=== PATIENT | female | born 1945 | race Caucasian/White ===

== ENCOUNTER → 2016-10-26 | Outpatient (CLI) | payer OTHER ==
[~2016-10-26] MED LIST: CYAN1DRO INJ; FLUO40CA8 PO; ONDA8TAB62 SL; OXYC-57 PO; PRLSR20 PO
[2016-10-26 10:24] LABS: BASO % 0.5 %; BASO ABS # 0.04 K/uL (0-0.2); COMPLETE YES; EOS % 3.3 %; HEMATOCRIT 35.6 % (37-47); IG% 0.5 %; LYMPH % 14.3 %; LYMPH ABS # 1.15 K/uL (1.2-3.4); MEAN CELL VOLUME 88.3 fL (80-100); MEAN CORPUSCULAR HGB CONC 32.9 g/dl (32-36); MEAN PLATELET VOLUME 10.8 fL (7.4-10.4); MONO % 6.7 %; NEUT % 74.7 %; PLATELET COUNT 235 K/uL (130-400); RED BLOOD COUNT 4.03 M/uL (4.2-5.4); WHITE BLOOD COUNT 8.06 K/uL (4.8-10.8)
[2016-10-26 10:48] LABS: ALT/SGPT 25 U/L (12-78); AST/SGOT 15 U/L (15-37); BLOOD UREA NITROGEN 23 mg/dl (7-18); BUN/CREATININE RATIO 17.6 (10-20); CALCIUM 8.5 mg/dl (8.5-10.1); CARBON DIOXIDE 20 mmol/L (21-32); CHLORIDE 107 mmol/L (98-107); GLUCOSE 84 mg/dl (70-99); POTASSIUM 4.8 mmol/L (3.5-5.1); SODIUM 139 mmol/L (136-145)
[2016-10-26 11:14] LABS: ALB/GLOB RATIO 0.8 (0.9-2); ALKALINE PHOSPHATASE 100 U/L (45-117); CHOLESTEROL 191 mg/dl (0-200); CHOLESTEROL/HDL RATIO 2.7; HDL CHOLESTEROL 72 mg/dl; LDL CHOLESTEROL CALCULATED 77 mg/dl; TRIGLYCERIDES 211 mg/dl (0-150); VERY LOW DENSITY LIPOPROT CALC 42 mg/dl
== END | disposition home or self-care (01) ==
LOC: C.LABSPEC 14:16
PROVIDERS: ATTEND Internal Medicine Pulmonary Disease
DX: C54.3 Malignant neoplasm of fundus uteri (principal); E53.8 Deficiency of other specified B group vitamins; E03.9 Hypothyroidism, unspecified; D64.9 Anemia, unspecified; R73.9 Hyperglycemia, unspecified

== ENCOUNTER 2017-03-08 12:32 | Emergency (ER) | payer OTHER ==
[~2017-03-08] VITALS: Ht 162.6 cm; Wt 75.1 kg
[~2017-03-08 12:32] MED LIST changes: -OXYC-57 PO
[2017-03-08 12:42] VITALS: TEMP 36.7; Ht 162.6 cm; Wt 75.1 kg
--- NOTE | 2017-03-08 13:20 | EMERGENCY ROOM VISIT NOTE ---
History Report prepared by Grace: Estefany Medeiros Under the Supervision of: Dr. Nery Orta D.O. First contact with patient: 12:47 Chief Complaint: GI ASSESSMENT Stated Complaint: ILEOSTOMY SURG. STOMA PROLAPSED History of Present Illness The patient is a 72 year old female who presents to the Emergency Room for a GI assessment. The patient has a history of cancer and had an ileostomy placed in March 2016. Her stoma has prolapsed a few times in the past. She states that currently it has prolapsed every day for the past two weeks. She has been using sugar and cold compresses to try and alleviate her symptoms, and states that she is typically able to get it back in. Today it was worse. It has never prolapsed out this far before. She tried the sugar and cold compresses this morning, but they did not help. The patient reports some discomfort but denies any pain. Her bowel movements have been normal. She follows with Dr. Rubio at [facility], but she is currently on vacation. She called her PCP this morning and they called [place]. [place] recommended that the patient come to the ER for evaluation to determine if the patient needs to be sent to [place]. Source of History: patient Onset: 2 weeks ago Position: abdomen Symptom Intensity: minimal Quality: other (prolapse) Timing: worsening Associated Symptoms: No abdominal pain Review of Systems See HPI for pertinent positives & negatives. A total of 10 systems reviewed and were otherwise negative. Past Medical & Surgical Medical Problems: (1) Appendectomy (2) CHEMOTHERAPY FOLLOW-UP (3) Endometrial cancer (4) Endometrial carcinoma (5) Hysterectomy (6) INTEST ADHES W [id number] (7) MAL MARTHA RECTOSIGMOID JCT (8) MALIG MARTHA CORPUS UTERI (9) RADIATION GASTROENTERIT (10) Small bowel obstruction (11) Small bowel obstruction (12) Small bowel obstruction Surgical Problems: (1) H/O: hysterectomy Family History FHx: cancer Social History Smoking Status: Never Smoker Alcohol Use: none Drug Use: none Marital Status: Housing Status: lives with significant other Occupation Status: retired Current/Historical Medications Scheduled Fluoxetine (Prozac), 40 MG PO LATE AFTERNOON DAILY Scheduled PRN Omeprazole (Prilosec), 20 MG PO QAM PRN for Indigestion Ondansetron Odt (Zofran Odt), 8 MG SL Q6 PRN Allergies Coded Allergies: Diphenhydramine (Verified Adverse Reaction, Intermediate, SHAKEY, HYPER, ) Morphine (Verified Adverse Reaction, Mild, vomiting, 03/08/17) Lactose Intolerance (GI) (Unverified Adverse Reaction, Unknown, DIAHREA , 03/08/17) Physical Exam Vital Signs Date Time Temp Pulse Resp B/P (MAP) Pulse Ox O2 Delivery O2 Flow Rate FiO2 03/08/17 15:51 65 18 123/88 99 03/08/17 14:21 67 16 125/68 98 Room Air 03/08/17 12:42 36.7 103 18 98 Room Air Physical Exam GENERAL: alert, well appearing, well nourished, no distress, non-toxic EYE EXAM: normal conjunctiva, PERRL and EOM's grossly intact OROPHARYNX: no exudate, no erythema, lips, buccal mucosa, and tongue normal and mucous membranes are moist NECK: supple, no nuchal rigidity, no adenopathy, non-tender LUNGS: Clear to auscultation. Normal chest wall mechanics HEART: no murmurs, S1 normal and S2 normal ABDOMEN: There is a prolapsed segment of intestine at the ileostomy site. It is pink and moist, no bleeding from around the stoma. Stoma is well-healed. No evidence of surrounding cellulitis. Patient's abdomen is otherwise soft and nontender. BACK: Back is symmetrical on inspection and there is no deformity, no midline tenderness, no CVA tenderness. SKIN: no rashes and no bruising UPPER EXTREMITIES: upper extremities are grossly normal. LOWER EXTREMITIES: No pitting edema. NEURO EXAM: Normal sensorium, cranial nerves II-XII grossly intact, normal speech, no gross weakness of arms, no gross weakness of legs. Medical Decision & Procedures ED Course 1247: The patient was evaluated in room B4B. A complete history and physical exam was performed. 1321: At this time I spoke with Dr. Braun of colorectal specialty at [facility]. We discussed the patient's case. She recommended trying more sugar and having general surgery assess. As long as it is not ischemic and she is without vomiting or pain, she can be seen in the clinic tomorrow for follow- up. 1328: I updated the patient. She has a wet sterile dressing in place. She is still pain-free. The patient is comfortable with the plan. 1354: I obtained sugar from the cafeteria and applied it to the patient's abdomen. The patient is less prolapsed than she was during our first examination. 1457: I reassessed the patient and the prolapse has reduced. 1527: I spoke with Dr. Braun again at this time. She feels that the patient can be safely discharged and she should call the clinic tomorrow to schedule follow- up. 1532: I reassessed the patient at this time. She is feeling better and resting comfortably. I discussed the results and treatment plan with the patient. I answered all pertaining questions that she had. She expressed understanding and verbalized agreement. The patient will be discharged home. Medical Decision Medication Reconciliation: I attest that I have personally reviewed the patient' s current medication list. Blood pressure screening: Patient was found to have normal blood pressure on screening and does not require follow-up. Patient well-appearing here and a symptomatically other than prolapsed ileostomy segment. No evidence of ischemia or poor perfusion. No nausea vomiting, no other abdominal pain. The left segment able to be reduced with use of sugar. Discussed with patient's colorectal physician both before and after attempted reduction. Did not feel patient warranted more emergent surgical intervention or consultation here given successful reduction. Discussed with patient close follow-up with colorectal clinic at [place], symptoms to watch and return for, she verbalized understanding was agreeable with plan. Consults Time Called: 1315 Consulting Physician: Dr. Braun Returned Call: 1321 At this time I spoke with Dr. Braun of colorectal specialty at [facility]. We discussed the patient's case. She recommended trying more sugar and having general surgery assess. As long as it is not ischemic and she is without vomiting or pain, she can be seen in the clinic tomorrow for follow-up. Additional Consults: Time Called: 1522 Consulted Physician: Dr. Braun Returned Call: 1527 Additional Comments: I spoke with Dr. Braun again at this time. She feels that the patient can be safely discharged and she should call the clinic tomorrow to schedule follow-up. Impression Primary Impression: Prolapse of ileostomy Scribe Attestation The scribe's documentation has been prepared under my direction and personally reviewed by me in its entirety. I confirm that the note above accurately reflects all work, treatment, procedures, and medical decision making performed by me. Departure Information Dispostion Home / Self-Care Referrals Ray Wilson M.D. (PCP) Forms HOME CARE DOCUMENTATION FORM, IMPORTANT VISIT INFORMATION Patient Instructions My [facility] Additional Instructions Please call the colorectal clinic at [place] tomorrow to discuss with them how you're feeling and also arrange an appointment for close follow-up. Please rest today, sitting and/or laying down, and avoid any prolonged standing or walking, no strenuous activity or heavy lifting. Please continue all regular medications as prescribed. If you develop fevers, nausea or vomiting, abdominal pain, feel your ileostomy is not functioning properly, notice a change in the output, or you have any other new concerns, please return the emergency room immediately.
[2017-03-08 15:51] VITALS: BP 123/88; PULSE 65; O2SAT 99
[2017-04-26] MEDS ORDERED: OXYC-57 PO (09:03)
== END 2017-03-08 15:22 | disposition home or self-care (01) ==
LOC: C.EDB 12:34
DX: K94.19 Other complications of enterostomy (principal); Z85.89 Personal history of malignant neoplasm of other organs and systems; Z85.048 Personal history of other malignant neoplasm of rectum, rectosigmoid junction, and anus; Z80.9 Family history of malignant neoplasm, unspecified; Z79.899 Other long term (current) drug therapy

== ENCOUNTER 2017-03-14 12:35 | Emergency (ER) | payer OTHER ==
[~2017-03-14] VITALS: Ht 162.6 cm; Wt 75.2 kg
[~2017-03-14 12:35] MED LIST changes: -CYAN1DRO INJ
[2017-03-14 12:44] VITALS: TEMP 36.4; Ht 162.6 cm; Wt 75.2 kg
--- NOTE | 2017-03-14 14:30 | DIAGNOSTIC IMAGING REPORT ---
CHEST AND ABDOMEN 2 VIEWS HISTORY: poss obstruc, ileostomy. Generalized abdominal pain. COMPARISON: Chest and abdominal series 03/06/2016. FINDINGS: Mild, diffuse interstitial thickening. The heart is stable in size. Left subclavian Port-A-Cath terminates at the SVC. No pneumothorax. No pleural effusions. Right lower quadrant ostomy is again noted. Surgical clips and pelvic calcifications remain unchanged. Multiple distended loops of small bowel within the mid to upper abdomen with small fluid levels. These measure up to 5.7 cm in diameter. This has improved compared to the prior study. No pneumoperitoneum. No pneumatosis. IMPRESSION: Multiple distended loops of small bowel within the upper to mid abdomen with small fluid levels. This is consistent with a small bowel obstruction. However, this is improved compared to the prior studies. Electronically signed by: Pedro Rainey M.D. 03/14/2017 2:29 PM Dictated Date/Time: 03/14/2017 2:26 PM
--- NOTE | 2017-03-14 15:13 | EMERGENCY ROOM VISIT NOTE ---
History Report prepared by Grace: Ricky Todd Under the Supervision of: Dr. Glen Richardson M.D. First contact with patient: 12:51 Chief Complaint: ABDOMINAL PAIN Stated Complaint: STOMACH STICKING OUT,WONT GO IN,NAUSEA History of Present Illness The patient is a 72 year old female who presents to the Emergency Room with complaints of a worsening prolapsed ileostomy beginning a few weeks ago. The patient reports that her prolapse worsened a few hours ago. She states that she has been trying to reduce it on her own with sugar, but it has not been working well. The patient states that her ileostomy has been prolapsing off and on for the past few weeks. She reports that she typically uses sugar to reduce her prolapse, and it has been working. The patient notes that she was here on Wednesday for a prolapse of about 6 in. She states that sugar and cold compresses were used to reduce it, and it took hours. The patient reports that she was not nauseous on Wednesday, but today she is experiencing nausea, as well as blood in her ileostomy. She notes that she has an appointment with her surgeon in the next few weeks for a follow-up. The patient states that has a history of cancer , and the radiation has caused her problems. Source of History: patient Onset: few weeks ago Position: abdomen Quality: other (prolapsed ileostomy) Timing: worsening Associated Symptoms: + nausea Note: Associated symptoms: blood in her ileostomy Review of Systems See HPI for pertinent positives & negatives. A total of 10 systems reviewed and were otherwise negative. Past Medical & Surgical Medical Problems: (1) Appendectomy (2) CHEMOTHERAPY FOLLOW-UP (3) Endometrial cancer (4) Endometrial carcinoma (5) Hysterectomy (6) INTEST ADHES W [id number] (7) MAL MARTHA RECTOSIGMOID JCT (8) MALIG MARTHA CORPUS UTERI (9) RADIATION GASTROENTERIT (10) Small bowel obstruction (11) Small bowel obstruction (12) Small bowel obstruction Surgical Problems: (1) H/O: hysterectomy Family History FHx: cancer Social History Smoking Status: Never Smoker Alcohol Use: none Drug Use: none Marital Status: Housing Status: lives with significant other Occupation Status: retired Current/Historical Medications Scheduled Fluoxetine (Prozac), 40 MG PO LATE AFTERNOON DAILY Scheduled PRN Omeprazole (Prilosec), 20 MG PO QAM PRN for Indigestion Ondansetron Odt (Zofran Odt), 8 MG SL Q6 PRN Allergies Coded Allergies: Diphenhydramine (Verified Adverse Reaction, Intermediate, SHAKEY, HYPER, ) Morphine (Verified Adverse Reaction, Mild, vomiting, 03/14/17) Lactose Intolerance (GI) (Unverified Adverse Reaction, Unknown, DIAHREA , 03/14/17) Physical Exam Vital Signs Date Time Temp Pulse Resp B/P (MAP) Pulse Ox O2 Delivery O2 Flow Rate FiO2 03/14/17 15:26 69 18 141/77 98 03/14/17 15:16 72 18 141/77 98 Room Air 03/14/17 12:44 36.4 76 18 137/87 98 Room Air Physical Exam GENERAL: Patient is in no acute distress. HEENT: No acute trauma, normocephalic atraumatic, mucous membranes moist, no nasal congestion, no scleral icterus. NECK: No stridor, no adenopathy, no meningismus, trachea is midline. LUNGS: Clear to auscultation bilaterally, no wheeze, no rhonchi, breath sounds equal. HEART: Without murmurs gallops or rubs, regular rate and rhythm. ABDOMEN: Right sided ileostomy, which has herniated through the abdominal wall opening, no drainage, no skin cellulitis, no abdominal peritonitis, soft abdomen. EXTREMITIES: No cyanosis or edema, full range of motion of all the joints without pain or difficulty, no signs for acute trauma. NEUROLOGIC: Oriented x 3, no acute motor or sensory deficits, no focal weakness. SKIN: No rash, no jaundice, no diaphoresis. Medical Decision & Procedures ER Provider Diagnostic Interpretation: X-ray results as stated below per interpretation by me and the radiologist: CHEST AND ABDOMEN 2 VIEWS HISTORY: poss obstruc, ileostomy. Generalized abdominal pain. COMPARISON: Chest and abdominal series 03/06/2016. FINDINGS: Mild, diffuse interstitial thickening. The heart is stable in size. Left subclavian Port-A-Cath terminates at the SVC. No pneumothorax. No pleural effusions. Right lower quadrant ostomy is again noted. Surgical clips and pelvic calcifications remain unchanged. Multiple distended loops of small bowel within the mid to upper abdomen with small fluid levels. These measure up to 5.7 cm in diameter. This has improved compared to the prior study. No pneumoperitoneum. No pneumatosis. IMPRESSION: Multiple distended loops of small bowel within the upper to mid abdomen with small fluid levels. This is consistent with a small bowel obstruction. However, this is improved compared to the prior studies. Electronically signed by: Pedro Rainey M.D. 03/14/2017 2:29 PM Dictated Date/Time: 03/14/2017 2:26 PM Procedure Prolapse reduction: Using some persistent pressure and manipulation, the prolapse was reduced without complication or pain. The ileostomy immediately began draining stool. ED Course 1301: The patient was evaluated in room C04. A complete history and physical exam was performed. 1439: I reevaluated the patient, and she is doing well. Her ileostomy is draining well. I am going to discuss her case with her surgery group at [facility]. 1450: I discussed the patient's case with Dr. Harman, Surgery. The patient will be seen in the [place] clinic on Wednesday. 1500: Reevaluated the patient. Discussed results and discharge instructions: she verbalized understanding and agreement. The patient is ready for discharge. Medical Decision Differential diagnosis includes: bowel obstruction, hernia, prolapse, weakened abdominal musculature Medication Reconciliation: I attest that I have personally reviewed the patient' s current medication list. Blood pressure screening: Patient was found to have a slightly elevated blood pressure due to circumstances. I do not believe that the patient requires hypertension monitoring. The patient presents with a prolapse to her ileostomy, this has been an ongoing issue for her for several weeks. Today, she has been unable to reduce the ileostomy with sugar and presents here for help. The patient does have some nausea but her abdomen is soft. I was able to manually reduce the ileostomy without complication, she had no pain during the reduction. The patient's ileostomy began draining, she filled over a bag of stool. She feels markedly better, she is no longer nauseated. Films of the abdomen shows some air-fluid levels consistent with a possible obstruction but the films actually appear improved compared to previous films. I spoke with the surgical service at [facility]. The patient is being discharged with an outpatient follow-up in 2 days. The patient was encouraged to return for worsening symptoms, vomiting or pain. Consults Time Called: 1441 Consulting Physician: Dr. Harman, Surgery Returned Call: 1450 I discussed the patient's case with Dr. Harman, Surgery. The patient will be seen in the [place] clinic on Wednesday. Impression Primary Impression: Prolapse of ileostomy Scribe Attestation The scribe's documentation has been prepared under my direction and personally reviewed by me in its entirety. I confirm that the note above accurately reflects all work, treatment, procedures, and medical decision making performed by me. Departure Information Dispostion Home / Self-Care Referrals Heather Rubio M.D. (PCP) Forms HOME CARE DOCUMENTATION FORM, IMPORTANT VISIT INFORMATION Patient Instructions My [facility] Additional Instructions care as before you should call the [place] office to be seen this wednesday--I spoke with the detonator maker surgeon about this timing return for vomiting or pain or lack of ostomy drainage return for the inability to reduce the prolapse
[2017-03-14 15:26] VITALS: BP 141/77; PULSE 69; O2SAT 98
[2017-04-26] MEDS ORDERED: OXYC-57 PO (09:03)
== END 2017-03-14 15:26 | disposition home or self-care (01) ==
LOC: C.EDB 12:37 → C.EDC 15:26
DX: K94.13 Enterostomy malfunction (principal); Z85.01 Personal history of malignant neoplasm of esophagus; Z85.038 Personal history of other malignant neoplasm of large intestine; Z85.42 Personal history of malignant neoplasm of other parts of uterus; Z90.710 Acquired absence of both cervix and uterus; K56.60 Unspecified intestinal obstruction; Z92.3 Personal history of irradiation; Z92.21 Personal history of antineoplastic chemotherapy; Z98.890 Other specified postprocedural states; Z79.899 Other long term (current) drug therapy; Z88.5 Allergy status to narcotic agent; Z88.8 Allergy status to other drugs, medicaments and biological substances; Z91.011 Allergy to milk products; Z80.9 Family history of malignant neoplasm, unspecified

== ENCOUNTER 2017-03-31 13:16 | Emergency (ER) | payer OTHER ==
[~2017-03-31] VITALS: Ht 162.6 cm; Wt 77.5 kg
[2017-03-31 13:19] VITALS: TEMP 36.7; Ht 162.6 cm; Wt 77.5 kg
[2017-03-31] MEDS ORDERED: SODIUM CHLORIDE 0.9% 500ML 500 ML IV STA (13:48)
--- NOTE | 2017-03-31 13:48 | EMERGENCY ROOM VISIT NOTE ---
History Report prepared by Grace: Yoan Duncan Under the Supervision of: Dr. Eric Damon M.D. First contact with patient: 13:39 Chief Complaint: GI ASSESSMENT Stated Complaint: STOMA PROLAPSE History of Present Illness The patient is a 72 year old female who presents to the Emergency Room with complaints of a persistent prolapsed stoma that started around 0900 this morning. She has an ileostomy. The patient states that she was in here 2 or 3 weeks ago for the same problem. She says that she has not been able to settle it down this time either. The patient notes that the color of the discharge was pinkish-red but is now more reddish. She denies any pain currently. The patient adds that she is scheduled to see an anesthesiologist in [place] in 8 days, and she is scheduled to have surgery on April 19. Source of History: patient, family Onset: Around 0900 this morning Position: abdomen Quality: other (prolapsed stoma) Timing: other (persistent) Note: Associated symptoms: Color of discharge was pinkish-red but is now more red. Denies any current pain. Review of Systems See HPI for pertinent positives & negatives. A total of 10 systems reviewed and were otherwise negative. Past Medical & Surgical Medical Problems: (1) Appendectomy (2) CHEMOTHERAPY FOLLOW-UP (3) Endometrial cancer (4) Endometrial carcinoma (5) Hysterectomy (6) INTEST ADHES W [id number] (7) MAL MARTHA RECTOSIGMOID JCT (8) MALIG MARTHA CORPUS UTERI (9) RADIATION GASTROENTERIT (10) Small bowel obstruction (11) Small bowel obstruction (12) Small bowel obstruction Surgical Problems: (1) H/O: hysterectomy Family History FHx: cancer Social History Smoking Status: Never Smoker Alcohol Use: none Drug Use: none Marital Status: Housing Status: lives with significant other Occupation Status: retired Current/Historical Medications Scheduled Fluoxetine (Prozac), 40 MG PO LATE AFTERNOON DAILY Allergies Coded Allergies: Diphenhydramine (Verified Adverse Reaction, Intermediate, SHAKEY, HYPER, ) Morphine (Verified Adverse Reaction, Mild, vomiting, 03/14/17) Lactose Intolerance (GI) (Unverified Adverse Reaction, Unknown, DIAHREA , 03/14/17) Physical Exam Vital Signs Date Time Temp Pulse Resp B/P (MAP) Pulse Ox O2 Delivery O2 Flow Rate FiO2 03/31/17 16:13 70 18 138/81 97 03/31/17 14:59 70 16 147/84 03/31/17 13:19 36.7 82 20 146/81 96 Room Air Physical Exam GENERAL: Patient is a healthy-appearing well-nourished 72 year old female. HEAD: Normocephalic atraumatic EYES: Ocular movements intact pupils equal and react to light OROPHARYNX mucous membranes are moist no exudates present no erythema or edema present NECK: Supple no nuchal rigidity CHEST: Good equal expansion LUNGS: Clear and equal to auscultation CARDIAC: Normal S1 and S2 ABDOMEN: Ostomy that herniates out, is reducible, however re-herniates out after. BACK: No CVA tenderness EXTREMITIES: No pain upon palpation normal muscle strength in all groups no clubbing cyanosis or edema NEURO: Patient is following commands and answering questions appropriately. Alert and oriented x3 Cranial Nerves 2-12 grossly intact Medical Decision & Procedures Laboratory Results Labs reviewed by ED physician. ED Course 1341: Past medical records reviewed. The patient was evaluated in room A10. A complete history and physical examination was performed. 1348: Ordered NSS 500 ml @ 999 mls/hr IV. 1358: The patient's ostomy just reduced. 1444: I discussed the patient with Dr. Rubio - [facility] colon and rectal surgery - he wants the patient transferred down. 1446: I reevaluated the patient and she is resting. The patient verbally expressed understanding and agreement of the treatment plan. The patient will be transferred to . Medical Decision Differential diagnosis: Etiologies such as appendicitis, diverticulitis, PUD, biliary pathology, UTI, pancreatitis, obstruction, mesenteric ischemia, aortic pathology, infections, inflammatory bowel disease, renal colic, as well as others were entertained. Blood Pressure Screening: Patient was found to have an elevated blood pressure and was referred to their primary care doctor for recheck and further treatment Medication Reconciliation: I attest that I have personally reviewed the patient' s current medication list This is a 72-year-old female who presents emergency Department with a ostomy prolapse. This was reduced by me using sugar in the emergency department however the ostomy again herniated out. Because of this I did discuss the patient's case with her surgeon down in [place] who asked that the patient be transferred down. I did discuss my findings with the family who were in agreement with the treatment plan. I do feel that the patient can be safely discharged discharged via vehicle. Patient family were in agreement with the treatment plan. Consults Time Called: 1440 Consulting Physician: Dr. Ramiro Luque colon and rectal surgery Returned Call: 1440 I discussed the patient with Dr. Ramiro Luque colon and rectal surgery - he wants the patient transferred down. Impression Primary Impression: Complication of ostomy Scribe Attestation The scribe's documentation has been prepared under my direction and personally reviewed by me in its entirety. I confirm that the note above accurately reflects all work, treatment, procedures, and medical decision making performed by me. Departure Information Dispostion Transfer Acute Care Facility () Referrals Ray Wilson M.D. (PCP) Patient Instructions My [facility] Additional Instructions Go directly to [place]
[2017-03-31 16:13] VITALS: BP 138/81; PULSE 70; O2SAT 97
[2017-04-26] MEDS ORDERED: OXYC-57 PO (09:03)
== END 2017-03-31 16:14 | disposition short-term general hospital (02) ==
LOC: C.EDB 13:19 → C.EDA 16:14
DX: K94.19 Other complications of enterostomy (principal); Y83.3 Surgical operation with formation of external stoma as the cause of abnormal reaction of the patient, or of later complication, without mention of misadventure at the time of the procedure; Z85.42 Personal history of malignant neoplasm of other parts of uterus; Z85.048 Personal history of other malignant neoplasm of rectum, rectosigmoid junction, and anus; Z90.710 Acquired absence of both cervix and uterus; Z90.89 Acquired absence of other organs

== ENCOUNTER → 2017-04-26 | Day surgery (SDC) | payer OTHER ==
[~2017-04-26] VITALS: Ht 162.6 cm; Wt 75.0 kg
[~2017-04-26] MED LIST changes: +CEFAZOLIN 1000MG/55 ML D5W IV SCH; +FENTANYL CITRATE INJ 50 MCG/1 ML 2 ML VIAL IV ONE; +FENTANYL CITRATE INJ 50 MCG/1 ML 2 ML VIAL ONE; +LIDOCAINE HCL 1% 20 ML VIAL INJ ONE; +LIDOCAINE HCL 1% 20 ML VIAL ONE; +MIDAZOLAM HCL 1 MG/ML 2ML VIAL IV ONE; +MIDAZOLAM HCL 1 MG/ML 2ML VIAL ONE; -ONDA8TAB62 SL; +OXYC-57 PO; -PRLSR20 PO; +SODIUM CHLORIDE 0.9% 1000ML IV SCH
[2017-04-26 06:30] VITALS: BP 135/66; PULSE 79; TEMP 36.7; O2SAT 98; Ht 162.6 cm; Wt 75.0 kg
[2017-04-26 07:46] VITALS: BP 135/66; PULSE 79; TEMP 36.7; O2SAT 98
--- NOTE | 2017-04-26 07:55 | History and Physical ---
History & Physical Date Apr 26, 2017. Chief Complaint Post infusaport insertion 9 years ago History of Present Illness The patient is a 72 year old female who had an infusaport placed nine years ago for endometrial ca. She is not using it any longer. She is here for removal of the port. Vitals Vital Signs Past 12 Hours Date Time Temp Pulse Resp B/P (MAP) Pulse Ox O2 Delivery O2 Flow Rate FiO2 04/26/17 06:30 36.7 79 18 135/66 (89) 98 Room Air Allergies Coded Allergies: Diphenhydramine (Verified Adverse Reaction, Intermediate, SHAKEY, HYPER, ) Morphine (Verified Adverse Reaction, Mild, vomiting, 04/26/17) Lactose Intolerance (GI) (Unverified Adverse Reaction, Unknown, DIAHREA , 04/26/17) Home Medications Scheduled Fluoxetine (Prozac), 40 MG PO LATE AFTERNOON DAILY Problem List Medical Problems: (1) Appendectomy (2) CHEMOTHERAPY FOLLOW-UP (3) Endometrial cancer (4) Endometrial carcinoma (5) Hysterectomy (6) INTEST ADHES W [id number] (7) MAL MARTHA RECTOSIGMOID JCT (8) MALIG MARTHA CORPUS UTERI (9) RADIATION GASTROENTERIT (10) Small bowel obstruction (11) Small bowel obstruction (12) Small bowel obstruction Surgical Problems: (1) H/O: hysterectomy Surgical / Medical History Hx Cardiac Surgery: No Hx Abdominal Surgery: Yes (SUSAN/BSO 1993, TUBAL LIGATION) Hx Cancer Surgery: Yes (HYSTER) Hx Thoracic Surgery: No Hx Orthopedic: No Hx Urinary Tract Surgery: Yes (ileostomy) Past Medical/Surgical History: Gastrointestinal Disorder, Gynecological Problems Family History FHx: cancer Social History Smoking Status: Never Smoker Hx Tobacco Use In Past Year?: No Hx Alcohol Use - Type & Amnt: No Hx Substance Use -Type & Amnt: No Review of Systems Constitutional: No chills, No diaphoresis, No fever, No malaise, No weakness, No weight gain, No weight loss, No sweats, No fatigue, No problem reported Skin: No change in color, No change in hair/nails, No dryness, No lesions, No lumps, No rash, No abnormal mole, No problem reported Eyes: No discharge, No blurred vision, No double vision, No eye pain, No tearing, No itching, No photophobia, No redness, No visual changes, No dryness, No irritation, No problem reported ENMT: No dental pain, No loss of hearing, No epistaxis, No ear discharge, No ear pain, No gum swelling, No mouth pain, No mouth swelling, No nasal congestion , No nasal pain, No rhinorrhea, No stridor, No tinnitus, No sore throat, No throat swelling, No problem reported Respiratory: No cough, No cyanosis, No MANTILLA, No hemoptysis, No orthopnea, No PND , No short of breath, No sputum production, No stridor, No wheezing, No dyspnea , No problem reported Cardiovascular: No chest pain, No chest tightness, No chest pressure, No palpitations, No syncope, No diaphoresis, No edema, No intermittent claudication , No orthopnea, No cyanosis, No mumur, No lightheadedness, No paroxysmal nocturnal dyspnea, No problem reported Gastrointestinal: No abdominal pain, No constipation, No diarrhea, No nausea, No vomiting, No anorexia, No appetite changes, No belching, No flatulence, No food intolerance, No hematemesis, No hemorrhoids, No hematochezia, No stool changes, No heartburn, No indigestion, No dysphagia, No rectal bleeding, No problem reported Genitourinary - Female: No dysmenorrhea, No dysuria, No hematuria, No hesitancy , No menorrhagia, No metrorrhagia, No , No rash, No urinary frequency, No urinary incontinence, No urinary retention, No urinary urgency, No vulvadynia , No vaginal bleeding, No vaginal discharge, No vaginal itching, No breast problems, No problem reported Musculoskeletal: No back pain, No gout, No joint pain, No joint swelling, No muscle pain, No muscle stiffness, No muscle weakness, No neck pain, No problem reported Neurologic: No dizziness, No weakness, No headache, No lethargy, No numbness, No paresthesia, No pre-existing deficit, No seizures, No tics, No tingling, No tremors, No vertigo, No memory loss, No LOC, No problem reported Psychiatric: No anxiety, No alcohol abuse, No auditory hallucinations, No depression, No drug abuse, No homicidal ideation, No mood changes, No suicidal ideation, No visual hallucinations, No problem reported Physical Exam Constitutional: General Apperance: heathly-appearing, well-nourished, well-developed Level of Distress: NAD Ambulation: ambulating normally Psychiatric: Mental Status: active & alert, normal mood, normal affect Orientation: oriented except where noted, to time, to place, to person Memory: recent memory normal, remote memory normal Head: normocephalic Lungs: Auscultation: breath sounds normal Cardiovascular: Heart Auscultation: RRR Peripheral Pulses: Radial Pulse: normal on the left, normal on the right Femoral Pulse: normal on the left, normal on the right Abdomen: Inspection & Palpation: soft, pertinent finding (ileostomy present) Musculoskeletal: normal Extremities: Upper Right: no cyanosis, no edema, no varicosities, no palpable cord, no clubbing, no ulcers, no mottling Upper Left: no cyanosis, no edema, no varicosities, no palpable cord, no clubbing, no ulcers, no mottling Lower Right: no cyanosis, no edema, no varicosities, no palpable cord, no clubbing, no ulcers, no mottling Lower Left: no cyanosis, no edema, no varicosities, no palpable cord, no clubbing, no ulcers, no mottling Neurologic: Cranial Nerves: grossly intact Sensation: grossly intact Assessment and Plan Imp: Post infusaport Endometrial ca SBO recurrent Plan: Patient here for removal of her infusaport. I have discussed the risks options and benefits of the procedure with the patient. The patient understands the risks options and benefits and agrees to the procedure.
--- NOTE | 2017-04-26 08:04 | Procedure Note ---
Pre-Mod Sedation Assessment General Date of Moderate Sedation: Apr 26, 2017. Vital Signs: Vital Signs Past 12 Hours Date Time Temp Pulse Resp B/P (MAP) Pulse Ox O2 Delivery O2 Flow Rate FiO2 04/26/17 07:46 36.7 79 18 135/66 98 Room Air 04/26/17 06:30 36.7 79 18 135/66 (89) 98 Room Air Pre-Sedation Airway Assessment Oral Cavity: Capped Teeth Short Thick Neck: No Hx of Sleep Apnea: No Smoking Status: Never Smoker Mallampati Classification: Class I ASA Classification: Class II Notes The planned sedation has been discussed with the patient and consent obtained. I have identified the patient, determined the appropriateness of sedation and have assessed the patient immediately prior to the procedure. All medicine(s) and interventions are by my order.
--- NOTE | 2017-04-26 08:59 | Procedure Note ---
Post-Moderate Sedation Plan General Date of Moderate Sedation Apr 26, 2017. Vital Signs: Vital Signs Past 12 Hours Date Time Temp Pulse Resp B/P (MAP) Pulse Ox O2 Delivery O2 Flow Rate FiO2 04/26/17 08:55 16 119/69 100 Nasal Cannula 4 04/26/17 07:46 36.7 79 18 135/66 98 Room Air 04/26/17 06:30 36.7 79 18 135/66 (89) 98 Room Air Review - Discharge Plan Post Moderate Sedation Plan: On clinical assessment, the patient appears to have tolerated the conscious sedation without complications. Patient is recovering as anticipated. Patient will continue to be monitored by nursing and may be discharged when conscious sedation discharge criteria are met.
--- NOTE | 2017-04-26 09:00 | [facility] Post Operative Brief Note ---
Immediate Operative Summary Operative Date Apr 26, 2017. Pre-Operative Diagnosis post infusaport Post-Operative Diagnosis same Procedure(s) Performed Removal Of Aport, Moderate Concious Sedation [address] Anders Client Liaison Surgeon(s) none Estimated Blood Loss 5 ml Findings catheter and port removed Specimens A. explanted aport Anesthesia Local with conscious sedation Complication(s) None Disposition
[2017-04-26 09:05] VITALS: BP 117/68; PULSE 90; TEMP 36.5; O2SAT 99
--- NOTE | 2017-04-26 09:05 | Discharge Instructions ---
Discharge Instructions Date of Service Apr 26, 2017. Visit Reason for Visit: Endometrial Cancer Discharge Discharge Diagnosis / Problem: Removal of infusaport Discharge Goals Goal(s): Therapeutic intervention Activity Recommendations Activity Limitations: resume your previous activity Lifting Limitations: none Exercise/Sports Limitations: none May Resume Sexual Activity: when tolerated Shower/Bathe: tomorrow Driving or Machine Use: resume 1 day after discharge Anesthesia . Post Anesthesia Instructions: If you have had General Anesthesia or IV Sedation: * Do not drive today. * Resume driving when surgeon permits. * Do not make important decisions or sign legal documents today. * Call surgeon for: 1. Temperature elevations greater than 101 degrees F. 2. Uncontrollable pain. 3. Excessive bleeding. 4. Persistent nausea and vomiting. 5. Medication intolerance (nausea, vomiting or rash). * For nausea and vomiting use only clear liquids such as: tea, soda, bouillon until nausea subsides, then gradually increase diet as tolerated. * If you have any concerns or questions, call your surgeon's office. If physician is unavailable and it is an emergency, call 911 or go to the nearest emergency room. . Instructions / Follow-Up Instructions / Follow-Up Call [phone] to schedule a follow up appointment if one not already scheduled. ACTIVITY RECOMMENDATIONS: See Above SPECIAL CARE INSTRUCTIONS: Call your doctor if: * Temperature above 101 degrees * Pain not relieved by pain medicine ordered * There is increased drainage or redness from any incision * You have any unanswered questions or concerns. Diet Recommendations Recommended Home Diet: resume previous diet Procedures Procedures Performed: Removal Of Aport, Moderate Concious Sedation 0834 to 0854 Pending Studies Studies pending at discharge: no Medical Emergencies . Who to Call and When: Medical Emergencies: If at any time you feel your situation is an emergency, please call 911 immediately. . Non-Emergent Contact Non-Emergency issues call your: Surgeon . . "Provider Documentation" section prepared by Alfredo Anders. .
--- NOTE | 2017-04-26 09:34 | DIAGNOSTIC IMAGING REPORT ---
CHEST ONE VIEW PORTABLE CLINICAL HISTORY: removal of infusaport left subclavian vein COMPARISON STUDY: 03/14/2017 FINDINGS: The cardiac and mediastinal contours remain similar. There is no focal pulmonary consolidation. There is no failure. There are no pleural effusions. The left-sided A-Port catheter has been removed. No pneumothorax is visualized.[ IMPRESSION: No pneumothorax status post removal of the left subclavian A-Port catheter. Electronically signed by: Madan Balderrama M.D. 04/26/2017 9:32 AM Dictated Date/Time: 04/26/2017 9:32 AM
[2017-04-26 09:35] VITALS: BP 109/61; PULSE 77; O2SAT 99
[2017-04-26 10:06] VITALS: BP 111/57; PULSE 75; TEMP 36.4; O2SAT 98
--- NOTE | 2017-05-04 15:26 | DIAGNOSTIC IMAGING REPORT ---
DATE OF PROCEDURE: 04/26/2017 PREOPERATIVE DIAGNOSIS: Post [id number] insertion. POSTOPERATIVE DIAGNOSIS: Same. PROCEDURE: 1. Removal of left subclavian vein [id number]. 2. Moderate conscious sedation, 20 minutes. SURGEON: Dr. Anders. ANESTHETIC: Local with conscious sedation. PROCEDURE INDICATIONS: The patient is a 72-year-old female who has a port in for the last 9 years. It was used for treatment for endometrial cancer and recurrence. She no longer needs the port and was recommended for removal. She understood the risks, options and benefits, and agreed to go ahead with this procedure. The patient was taken to the operating room and placed in supine position. After the left-sided chest wall and neck were prepped and draped in a sterile manner, local anesthetic was administered. A transverse incision was made just above the port. Dissection was carried down through the subcutaneous tissue. The port was identified. It was freed up from the surrounding tissue along with its 5-Chinese sheath. Once it was freed up, the sheath was incised around the catheter. This was using sharp dissection. The catheter was then pulled out under slight constant traction. Once this was pulled out, the fibrin sheath was then tied with a Vicryl suture. Adequate hemostasis was noted at the wound. The wound was then closed in usual fashion using a running 3-0 Vicryl suture for the subcutaneous layer and a running 4-0 subcuticular Vicryl suture for the skin edges. Dermabond was used for dressing. The catheter in its entirety along with the port was removed. The patient left the angio suite in good condition and tolerated the procedure well.
== END | disposition home or self-care (01) ==
LOC: C.ACU 06:13
PROVIDERS: ATTEND Surgery Vascular Surgery
DX: Z85.42 Personal history of malignant neoplasm of other parts of uterus (principal); Z92.21 Personal history of antineoplastic chemotherapy; Z90.89 Acquired absence of other organs; Z90.710 Acquired absence of both cervix and uterus; Z85.41 Personal history of malignant neoplasm of cervix uteri; Z85.048 Personal history of other malignant neoplasm of rectum, rectosigmoid junction, and anus; Z92.3 Personal history of irradiation

== ENCOUNTER → 2017-05-28 | Outpatient (CLI) | payer OTHER ==
[~2017-05-28] MED LIST changes: -CEFAZOLIN 1000MG/55 ML D5W IV SCH; -FENTANYL CITRATE INJ 50 MCG/1 ML 2 ML VIAL IV ONE; -FENTANYL CITRATE INJ 50 MCG/1 ML 2 ML VIAL ONE; -LIDOCAINE HCL 1% 20 ML VIAL INJ ONE; -LIDOCAINE HCL 1% 20 ML VIAL ONE; -MIDAZOLAM HCL 1 MG/ML 2ML VIAL IV ONE; -MIDAZOLAM HCL 1 MG/ML 2ML VIAL ONE; -SODIUM CHLORIDE 0.9% 1000ML IV SCH
--- NOTE | 2017-05-28 16:48 | DIAGNOSTIC IMAGING REPORT ---
LUMBAR SPINE 5 VIEWS HISTORY: LEFT LOWER BACK PAIN COMPARISON: PET CT 02/22/2013. FINDINGS: There is no fracture. Bilateral L4 spondylolysis with associated grade II anterolisthesis measuring 1.3 cm. Moderate disc space narrowing at L4-L5. Severe disc space narrowing at L5-S1. Mild disc space narrowing at L1-L2, L2-L3, L3-L4. Moderate facet degenerative changes within the lower lumbar spine. Right lower quadrant ostomy site. 1.6 cm calcified structure within the right upper quadrant consistent with calcification adjacent to the liver capsule. Peritoneal calcifications within the deep pelvis. Gas-filled loop of bowel within the abdomen which has decreased in size. The sacrum is intact. IMPRESSION: 1. No fractures within the lumbar spine. 2. Grade II anterolisthesis of L4 on L5 due to the spondylolysis. This remains unchanged. 3. Multilevel degenerative disc disease most pronounced at the L4 and L5 levels. Electronically signed by: Pedro Rainey M.D. 05/28/2017 4:47 PM Dictated Date/Time: 05/28/2017 4:42 PM
== END | disposition home or self-care (01) ==
LOC: C.RAD1850 16:18
PROVIDERS: ATTEND Physician Assistant
DX: M54.5 Low back pain (principal)

== ENCOUNTER → 2017-06-14 | Outpatient (CLI) | payer OTHER ==
--- NOTE | 2017-06-14 13:09 | MAMMOGRAPHY REPORT ---
BILATERAL DIGITAL SCREENING MAMMOGRAM WITH CAD: 06/14/2017 CLINICAL HISTORY: Routine screening. Patient has no complaints. TECHNIQUE: Bilateral CC and MLO views were obtained. Current study was also evaluated with a Comput er Aided Detection (CAD) system. COMPARISON: Comparison is made to exams dated: 06/12/2016 mammogram, 06/10/2015 mammogram, 12/20/2014 m ammogram, 06/19/2014 ultrasound, 06/19/2014 mammogram, and 06/06/2014 mammogram - [facility]. BREAST COMPOSITION: There are scattered areas of fibroglandular density in both breasts. FINDINGS: There is mild vascular calcifications and scattered stable benign-appearing rounded puncta te microcalcifications in the breasts. There are stable asymmetries bilaterally. No new suspicious m ass, architectural distortion or cluster of microcalcifications is seen. IMPRESSION: ACR BI-RADS CATEGORY 2: BENIGN There is no mammographic evidence of malignancy. A 1 year screening mammogram is recommended. The pa tient will receive written notification of the results. Approximately 10% of breast cancers are not detected with mammography. A negative mammographic report should not delay biopsy if a clinically suggestive mass is present. Morelia Quintero M.D. ay/:06/14/2017 12:57:40 Personal Injury Litigation Paralegal: Dinora BURNS(Tom)(M), [facility] letter sent: Normal 1/2 BI-RADS Code: ACR BI-RADS Category 2: Benign
== END | disposition home or self-care (01) ==
LOC: C.MAMM 09:28
PROVIDERS: ATTEND Obstetrics & Gynecology Gynecologic Oncology
DX: Z12.31 Encounter for screening mammogram for malignant neoplasm of breast (principal)

== ENCOUNTER → 2017-09-15 | Outpatient (CLI) | payer OTHER ==
[2017-09-15 12:23] LABS: BLOOD UREA NITROGEN 19 mg/dl (7-18)
== END | disposition home or self-care (01) ==
LOC: C.LAB1850 10:49
PROVIDERS: ATTEND Psychiatry & Neurology Neurology
DX: Z00.00 Encounter for general adult medical examination without abnormal findings (principal)

== ENCOUNTER → 2017-09-23 | Outpatient (CLI) | payer OTHER ==
[~2017-09-23] MED LIST changes: +GADAVIST IV PRN
--- NOTE | 2017-09-23 10:01 | DIAGNOSTIC IMAGING REPORT ---
BRAIN COMBO CLINICAL HISTORY: I63.9 Stroke [id number] mental status change COMPARISON STUDY: No previous studies for comparison. TECHNIQUE: Utilizing a 1.5 Joycelyn magnet and dedicated coil, multiplanar, multiecho imaging of the brain was performed pre and postcontrast administration. IV administration of 8.0 mL of Gadavist contrast was uneventful. FINDINGS: Diffusion-weighted images are negative for an acute ischemic insult. The ventricular system is midline. Several foci of increased signal in the periventricular and deep white matter regions consistent with moderate chronic small vessel change of aging. Mild atrophy considered age appropriate. Ventricular system is midline. Sella and parasellar regions are unremarkable. No abnormal postcontrast enhancement. Small venous angioma of the left occipital lobe as well as left superior parietal region. These are of no clinical significance. IMPRESSION: Age-related change and mild atrophy. No acute process. No evidence for an acute ischemic insult. The above report was generated using voice recognition software. It may contain grammatical, syntax or spelling errors. Electronically signed by: Seamus Garcia M.D. 09/23/2017 10:00 AM Dictated Date/Time: 09/23/2017 9:56 AM
== END | disposition home or self-care (01) ==
LOC: C.MRI 08:28
PROVIDERS: ATTEND Psychiatry & Neurology Neurology
DX: I63.9 Cerebral infarction, unspecified (principal)

== ENCOUNTER 2023-04-01 13:46 | Observation (INO) ==
--- NOTE | 2023-04-01 14:37 | Emergency Department Note ---
Impression & Plan SOB (shortness of breath), Hypoxia, DRAKE (acute kidney injury), CKD (chronic kidney disease), Elevated troponin, Abnormal ECG ED Provider Note ED Provider Note NAME: IZABELA NICHOLS AGE:78 SEX: Female : 1945 ARRIVES VIA: Private vehicle INFORMANT: Patient, family ED PROVIDER(s): Nery Orta DO CHIEF COMPLAINT: Shortness of breath HPI: This is an 78-year-old female presents emergency department due to concern for shortness of breath. Family bedside states mood has been going on for about a week. She went to her PCPs office and an echo was ordered in conjunction with Dr. Gusman. They do not yet know the results of this. He states they also performed an EKG in the office which was reported to them was unremarkable. Due to the concern for worsening symptoms particularly with any exertion, she was referred here for additional evaluation. She denies any history of asthma or COPD. States she was never smoker. She denies any history of heart problems. PAST MEDICAL HISTORY:See Below PAST SURGICAL HISTORY:See Below FAMILY HISTORY:See Below SOCIAL HISTORY:See Below HOME MEDICATIONS:See Below ALLERGIES:See Below VITALS:See Below PHYSICAL EXAMINATION: GENERAL: alert, well appearing, well nourished, no distress, non-toxic EYE EXAM: normal conjunctiva, PERRL and EOM's grossly intact OROPHARYNX: no exudate, no erythema, lips, buccal mucosa, and tongue normal and mucous membranes are moist NECK: supple, no nuchal rigidity, no adenopathy, non-tender LUNGS: Clear to auscultation. Normal chest wall mechanics, no w/r/r HEART: no murmurs, S1 normal and S2 normal ABDOMEN: abdomen soft, non-tender, normo-active bowel sounds, no masses, no rebound or guarding. BACK: Back is symmetrical on inspection and there is no deformity, no midline tenderness, no CVA tenderness. SKIN: no rashes, petechiae, orbruising UPPER EXTREMITIES: upper extremities are grossly normal. FROM, nml pulses b/l. LOWER EXTREMITIES: No pitting edema. FROM, nml pulses b/l. NEURO EXAM: Confused to recent events and timing, cranial nerves II-XII grossly intact, normal speech, no facial droop,nogross weakness of arms, no gross weakness of legs. Gross sensation intact. No ataxia. Vital Signs: reviewed and remarkable Differential Diagnosis: ACS, CHF, PE, PNA, URI, COPD, pericardial effusion, medication adr, as well as others were considered MEDICAL DECISION MAKING: THis is an 78 yo female who was referred to the ER by her PCP due to concern for persistent SOB with exertion. No hx of CAD. OUtpatient provider had started her on lasix 20 mg without improvement. She had an echo on Wednesday, results of which were not yet known. Patient well appearing at rest without adventitious lung sounds, increased WOB, or overt hypoxia. VS stable and patient afebrile. Labs drawn and sent, IV established, EKG and CXR performed and interpreted at bedside, and patient placed on telemetry. Patient with CKD and worsening DRAKE noted today. Unclear if this is due to the recent addition of lasix. CXR didn't reveal acute etiology of symptoms and given hx she was sent for CT which showed chronic appearing changes despite their denial of underlying lung problems. I did discuss outpatient echo with cardiology who reviewed this as it hadn't yet been read. Nml EF noted. Patient had elevated troponin and abnormalities on EKG, however these were also seen on EKG from 03/22/2023. Unclear if troponin releated to EKG changes and recent symptoms of from CKD. Patient unable to have angio due to CKD so couldn't rule out PE, however no leg swelling or calf tenderness. Patient noted to have hypoxia and respiratory di stress with ambulatory trial. I discussed with them additional inpatient evaluation. Family was in agreement. CAse discussed with hospitalist. Consultation(s): 1640: Discussed with Dr. Talamantes, cardiology. He will try to look at the echo and read it. 1711: Discussed with Dr. Baez. ER Treatment Provided: See below 1702: During ambulatory trial with nursing staff patient's oxygen dropped to 87%, she became weak, tachypneic, and near syncopal. She was assisted back in bed and placed on oxygen via nasal cannula. now also states she was previously started on a diuretic after they saw Nikki Patel in the office last week. He states she is not taking this anymore. Diagnostics Interpreted By Me: -ECG: NSR at 80, left axis, nml intervals, ST depression in I, aVL, no ST elevation noted -Cardiac Monitoring: An order was placed for continuous cardiac monitoring. The monitor shows a rate of 88 with normal sinus rhythm. -Laboratory studies: As stated above and show below. -Imaging studies: X-ray Chest: A single view study of the chest was reviewed and was negative for cardiomegaly, focal infiltrate, effusion, pulmonary edema, or wide mediastinum. 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) Small bowel obstruction Surgical History H/O ileostomy History of appendectomy (10/20/12) Family History Father Pancreatic cancer Mother Pancreatic cancer Other Cancer Social History Smoking Status: Unknown if ever smoked Second Hand Exposure: No; Do You Dip or Chew Tobacco: No; Hx Alcohol Use: No Hx Substance Use: No Preferred Language: Angolan Communication Ability: Effective Tester Armature Or Fields Required: No Beliefs That Will Affect Care: None marital status: Current Living Situation: Spouse current occupational status: retired Other Information That Helps Us Care for You: No Feels Safe at Home: Yes Safety Concerns: Feels Safe At This Time Assistive Devices: Glasses Allergies Allergies Allergy/AdvReac Type Severity Reaction Status Date / Time diphenhydramine AdvReac Intermediate SHAKEY, Verified 04/01/23 17:43 HYPER morphine AdvReac Mild vomiting Verified 04/01/23 17:43 lactose AdvReac Unknown DIAHREA Verified 04/01/23 17:43 doxycycline AdvReac Nausea Verified 04/01/23 17:43 nirous oxide AdvReac will make Uncoded 04/01/23 17:44 blind Home Meds Home Medications Medication Instructions Recorded Confirmed fluoxetine 20 mg tablet 20 mg PO DAILY 04/18/19 04/01/23 vitamins A,C,[id number] 4,296 1 cap PO BID 09/12/22 07/06/23 mcg-226 mg-90 mg capsule (ICaps AREDS) fluoxetine 40 mg capsule 40 mg PO DAILY 10/23/22 04/01/23 Previous Rx's Medication Instructions Recorded buspirone 7.5 mg tablet 7.5 mg PO BID #180 tabs 04/17/19 mirtazapine 15 mg tablet 15 mg PO DAILY #90 tabs 04/17/19 cholecalciferol (vitamin D3) 25 25 mcg PO .COMPLEX #30 caps 09/23/21 mcg (1,000 unit) capsule calcitriol 0.5 mcg capsule 0.5 mcg PO .COMPLEX #36 caps 04/10/22 levothyroxine 50 mcg capsule 50 mcg PO DAILY #90 caps 04/14/22 donepezil 10 mg tablet 10 mg PO DAILY #90 tabs 10/19/22 memantine 28 mg capsule 28 mg PO DAILY #90 ea 12/07/22 sprinkle,extended release 24hr Results & Data (ED) Vital Signs Vital Signs - 24 hr 04/01/23 13:50 04/01/23 14:07 04/01/23 14:11 Temperature 36.6 C Temperature Source Oral Pulse Rate 87 Pulse Rate [Apical] 85 Pulse Rate [Exercises] Pulse Rate [Resting] Pulse Rate from SpO2 Sensor Pulse Rhythm [Apical] Regular Pulse Strength [Apical] Normal Respiratory Rate 14 24 Respiratory Rate [Exercises] Respiratory Rate [Resting] Respiratory Effort / Characteristics Respiratory Pattern Regular Blood Pressure 131/80 Blood Pressure [Right Arm] 121/72 Blood Pressure Mean 97 Blood Pressure Mean [Right Arm] 88 Blood Pressure Position [Right Arm] Sitting Pulse Oximetry 91 94 95 Pulse Oximetry [Exercises] Pulse Oximetry [Resting] Oxygen Delivery Method Nasal Cannula Room Air Room Air Oxygen Flow Rate Sepsis Recent Fever Within 48 Hours No Sepsis New/Unexplained Change in Mental Status No Sepsis Action Taken by Nursing No Action Required Oxygen Flow Rate - Titration Pulse Oximetry Post Tiitration 04/01/23 14:30 04/01/23 14:30 04/01/23 14:15 Temperature Temperature Source Pulse Rate 82 91 H Pulse Rate [Apical] Pulse Rate [Exercises] Pulse Rate [Resting] Pulse Rate from SpO2 Sensor Pulse Rhythm [Apical] Pulse Strength [Apical] Respiratory Rate 26 H Respiratory Rate [Exercises] Respiratory Rate [Resting] Respiratory Effort / Characteristics Respiratory Pattern Blood Pressure Blood Pressure [Right Arm] Blood Pressure Mean Blood Pressure Mean [Right Arm] Blood Pressure Position [Right Arm] Pulse Oximetry 95 95 Pulse Oximetry [Exercises] Pulse Oximetry [Resting] Oxygen Delivery Method Room Air Room Air Oxygen Flow Rate Sepsis Recent Fever Within 48 Hours Sepsis New/Unexplained Change in Mental Status Sepsis Action Taken by Nursing Oxygen Flow Rate - Titration Pulse Oximetry Post Tiitration 04/01/23 15:25 04/01/23 14:11 04/01/23 14:20 Temperature Temperature Source Pulse Rate 86 89 Pulse Rate [Apical] Pulse Rate [Exercises] Pulse Rate [Resting] Pulse Rate from SpO2 Sensor 64 Pulse Rhythm [Apical] Pulse Strength [Apical] Respiratory Rate 26 H 27 H Respiratory Rate [Exercises] Respiratory Rate [Resting] Respiratory Effort / Characteristics Respiratory Pattern Blood Pressure Blood Pressure [Right Arm] 119/67 Blood Pressure Mean Blood Pressure Mean [Right Arm] 84 Blood Pressure Position [Right Arm] Sitting Pulse Oximetry 95 Pulse Oximetry [Exercises] Pulse Oximetry [Resting] Oxygen Delivery Method Room Air Room Air Oxygen Flow Rate Sepsis Recent Fever Within 48 Hours Sepsis New/Unexplained Change in Mental Status Sepsis Action Taken by Nursing Oxygen Flow Rate - Titration Pulse Oximetry Post Tiitration 04/01/23 14:30 04/01/23 14:40 04/01/23 14:50 Temperature Temperature Source Pulse Rate 83 80 87 Pulse Rate [Apical] Pulse Rate [Exercises] Pulse Rate [Resting] Pulse Rate from SpO2 Sensor 84 80 85 Pulse Rhythm [Apical] Pulse Strength [Apical] Respiratory Rate 29 H 23 27 H Respiratory Rate [Exercises] Respiratory Rate [Resting] Respiratory Effort / Characteristics Respiratory Pattern Blood Pressure Blood Pressure [Right Arm] Blood Pressure Mean Blood Pressure Mean [Right Arm] Blood Pressure Position [Right Arm] Pulse Oximetry 94 95 94 Pulse Oximetry [Exercises] Pulse Oximetry [Resting] Oxygen Delivery Method Room Air Room Air Room Air Oxygen Flow Rate Sepsis Recent Fever Within 48 Hours Sepsis New/Unexplained Change in Mental Status Sepsis Action Taken by Nursing Oxygen Flow Rate - Titration Pulse Oximetry Post Tiitration 04/01/23 15:00 04/01/23 15:10 04/01/23 15:20 Temperature Temperature Source Pulse Rate 79 78 86 Pulse Rate [Apical] Pulse Rate [Exercises] Pulse Rate [Resting] Pulse Rate from SpO2 Sensor 80 80 83 Pulse Rhythm [Apical] Pulse Strength [Apical] Respiratory Rate 26 H 24 20 Respiratory Rate [Exercises] Respiratory Rate [Resting] Respiratory Effort / Characteristics Respiratory Pattern Blood Pressure Blood Pressure [Right Arm] Blood Pressure Mean Blood Pressure Mean [Right Arm] Blood Pressure Position [Right Arm] Pulse Oximetry 95 96 95 Pulse Oximetry [Exercises] Pulse Oximetry [Resting] Oxygen Delivery Method Room Air Room Air Room Air Oxygen Flow Rate Sepsis Recent Fever Within 48 Hours Sepsis New/Unexplained Change in Mental Status Sepsis Action Taken by Nursing Oxygen Flow Rate - Titration Pulse Oximetry Post Tiitration 04/01/23 17:03 04/01/23 17:08 04/01/23 17:13 Temperature Temperature Source Pulse Rate Pulse Rate [Apical] 85 Pulse Rate [Exercises] 117 H Pulse Rate [Resting] 76 Pulse Rate from SpO2 Sensor Pulse Rhythm [Apical] Pulse Strength [Apical] Respiratory Rate 22 Respiratory Rate [Exercises] 28 H Respiratory Rate [Resting] 20 Respiratory Effort / Characteristics Spontaneous Respiratory Pattern Regular Blood Pressure Blood Pressure [Right Arm] 124/77 Blood Pressure Mean Blood Pressure Mean [Right Arm] 92 Blood Pressure Position [Right Arm] Sitting Pulse Oximetry 99 89 L Pulse Oximetry [Exercises] 87 L Pulse Oximetry [Resting] 97 Oxygen Delivery Method Room Air Nasal Cannula Room Air Oxygen Flow Rate 3 Sepsis Recent Fever Within 48 Hours Sepsis New/Unexplained Change in Mental Status Sepsis Action Taken by Nursing Oxygen Flow Rate - Titration 3 Pulse Oximetry Post Tiitration 99 04/01/23 15:25 04/01/23 15:25 04/01/23 15:30 Temperature Temperature Source Pulse Rate 75 Pulse Rate [Apical] Pulse Rate [Exercises] Pulse Rate [Resting] Pulse Rate from SpO2 Sensor 75 Pulse Rhythm [Apical] Pulse Strength [Apical] Respiratory Rate 24 Respiratory Rate [Exercises] Respiratory Rate [Resting] Respiratory Effort / Characteristics Respiratory Pattern Blood Pressure 119/67 121/80 Blood Pressure [Right Arm] Blood Pressure Mean 84 93 Blood Pressure Mean [Right Arm] Blood Pressure Position [Right Arm] Pulse Oximetry 96 Pulse Oximetry [Exercises] Pulse Oximetry [Resting] Oxygen Delivery Method Oxygen Flow Rate Sepsis Recent Fever Within 48 Hours Sepsis New/Unexplained Change in Mental Status Sepsis Action Taken by Nursing Oxygen Flow Rate - Titration Pulse Oximetry Post Tiitration 04/01/23 15:30 04/01/23 15:40 04/01/23 15:51 Temperature Temperature Source Pulse Rate 79 79 82 Pulse Rate [Apical] Pulse Rate [Exercises] Pulse Rate [Resting] Pulse Rate from SpO2 Sensor 79 80 82 Pulse Rhythm [Apical] Pulse Strength [Apical] Respiratory Rate 22 17 28 H Respiratory Rate [Exercises] Respiratory Rate [Resting] Respiratory Effort / Characteristics Respiratory Pattern Blood Pressure Blood Pressure [Right Arm] Blood Pressure Mean Blood Pressure Mean [Right Arm] Blood Pressure Position [Right Arm] Pulse Oximetry 96 95 94 Pulse Oximetry [Exercises] Pulse Oximetry [Resting] Oxygen Delivery Method Oxygen Flow Rate Sepsis Recent Fever Within 48 Hours Sepsis New/Unexplained Change in Mental Status Sepsis Action Taken by Nursing Oxygen Flow Rate - Titration Pulse Oximetry Post Tiitration 04/01/23 16:00 04/01/23 16:10 04/01/23 16:20 Temperature Temperature Source Pulse Rate 73 81 75 Pulse Rate [Apical] Pulse Rate [Exercises] Pulse Rate [Resting] Pulse Rate from SpO2 Sensor 74 71 74 Pulse Rhythm [Apical] Pulse Strength [Apical] Respiratory Rate 25 H 22 23 Respiratory Rate [Exercises] Respiratory Rate [Resting] Respiratory Effort / Characteristics Respiratory Pattern Blood Pressure Blood Pressure [Right Arm] Blood Pressure Mean Blood Pressure Mean [Right Arm] Blood Pressure Position [Right Arm] Pulse Oximetry 96 97 97 Pulse Oximetry [Exercises] Pulse Oximetry [Resting] Oxygen Delivery Method Oxygen Flow Rate Sepsis Recent Fever Within 48 Hours Sepsis New/Unexplained Change in Mental Status Sepsis Action Taken by Nursing Oxygen Flow Rate - Titration Pulse Oximetry Post Tiitration 04/01/23 16:30 04/01/23 16:40 04/01/23 16:50 Temperature Temperature Source Pulse Rate 77 75 75 Pulse Rate [Apical] Pulse Rate [Exercises] Pulse Rate [Resting] Pulse Rate from SpO2 Sensor 77 76 76 Pulse Rhythm [Apical] Pulse Strength [Apical] Respiratory Rate 23 21 24 Respiratory Rate [Exercises] Respiratory Rate [Resting] Respiratory Effort / Characteristics Respiratory Pattern Blood Pressure Blood Pressure [Right Arm] Blood Pressure Mean Blood Pressure Mean [Right Arm] Blood Pressure Position [Right Arm] Pulse Oximetry 96 98 97 Pulse Oximetry [Exercises] Pulse Oximetry [Resting] Oxygen Delivery Method Oxygen Flow Rate Sepsis Recent Fever Within 48 Hours Sepsis New/Unexplained Change in Mental Status Sepsis Action Taken by Nursing Oxygen Flow Rate - Titration Pulse Oximetry Post Tiitration 04/01/23 17:00 04/01/23 17:10 04/01/23 17:11 Temperature Temperature Source Pulse Rate Pulse Rate [Apical] Pulse Rate [Exercises] Pulse Rate [Resting] Pulse Rate from SpO2 Sensor 88 81 82 Pulse Rhythm [Apical] Pulse Strength [Apical] Respiratory Rate Respiratory Rate [Exercises] Respiratory Rate [Resting] Respiratory Effort / Characteristics Respiratory Pattern Blood Pressure Blood Pressure [Right Arm] Blood Pressure Mean Blood Pressure Mean [Right Arm] Blood Pressure Position [Right Arm] Pulse Oximetry 91 99 100 Pulse Oximetry [Exercises] Pulse Oximetry [Resting] Oxygen Delivery Method Oxygen Flow Rate Sepsis Recent Fever Within 48 Hours Sepsis New/Unexplained Change in Mental Status Sepsis Action Taken by Nursing Oxygen Flow Rate - Titration Pulse Oximetry Post Tiitration 04/01/23 17:11 04/01/23 17:20 04/01/23 17:30 Temperature Temperature Source Pulse Rate Pulse Rate [Apical] Pulse Rate [Exercises] Pulse Rate [Resting] Pulse Rate from SpO2 Sensor 68 Pulse Rhythm [Apical] Pulse Strength [Apical] Respiratory Rate Respiratory Rate [Exercises] Respiratory Rate [Resting] Respiratory Effort / Characteristics Respiratory Pattern Blood Pressure 124/77 142/89 H Blood Pressure [Right Arm] Blood Pressure Mean 92 106 Blood Pressure Mean [Right Arm] Blood Pressure Position [Right Arm] Pulse Oximetry 99 Pulse Oximetry [Exercises] Pulse Oximetry [Resting] Oxygen Delivery Method Oxygen Flow Rate 3 Sepsis Recent Fever Within 48 Hours Sepsis New/Unexplained Change in Mental Status Sepsis Action Taken by Nursing Oxygen Flow Rate - Titration Pulse Oximetry Post Tiitration 04/01/23 17:30 04/01/23 17:40 04/01/23 17:50 Temperature Temperature Source Pulse Rate Pulse Rate [Apical] Pulse Rate [Exercises] Pulse Rate [Resting] Pulse Rate from SpO2 Sensor 74 76 80 Pulse Rhythm [Apical] Pulse Strength [Apical] Respiratory Rate Respiratory Rate [Exercises] Respiratory Rate [Resting] Respiratory Effort / Characteristics Respiratory Pattern Blood Pressure Blood Pressure [Right Arm] Blood Pressure Mean Blood Pressure Mean [Right Arm] Blood Pressure Position [Right Arm] Pulse Oximetry 100 100 99 Pulse Oximetry [Exercises] Pulse Oximetry [Resting] Oxygen Delivery Method Oxygen Flow Rate 3 3 3 Sepsis Recent Fever Within 48 Hours Sepsis New/Unexplained Change in Mental Status Sepsis Action Taken by Nursing Oxygen Flow Rate - Titration Pulse Oximetry Post Tiitration 04/01/23 18:00 04/01/23 18:30 04/01/23 18:40 Temperature Temperature Source Pulse Rate Pulse Rate [Apical] Pulse Rate [Exercises] Pulse Rate [Resting] Pulse Rate from SpO2 Sensor 81 79 Pulse Rhythm [Apical] Pulse Strength [Apical] Respiratory Rate Respiratory Rate [Exercises] Respiratory Rate [Resting] Respiratory Effort / Characteristics Respiratory Pattern Blood Pressure 109/79 133/83 133/83 Blood Pressure [Right Arm] Blood Pressure Mean 89 99 99 Blood Pressure Mean [Right Arm] Blood Pressure Position [Right Arm] Pulse Oximetry 100 100 Pulse Oximetry [Exercises] Pulse Oximetry [Resting] Oxygen Delivery Method Nasal Cannula Nasal Cannula Oxygen Flow Rate 3 3 Sepsis Recent Fever Within 48 Hours Sepsis New/Unexplained Change in Mental Status Sepsis Action Taken by Nursing Oxygen Flow Rate - Titration Pulse Oximetry Post Tiitration Laboratory Data 04/01/23 14:33 04/01/23 14:33 Lab Results 04/01/23 04/01/23 04/01/23 Range/Units 14:33 14:33 14:33 WBC 15.58 H (4.8-10.8) K/ul RBC 4.72 (4.20-5.40) M/uL Hgb 14.2 (12.0-16.0) g/dl Hct 40.7 (37.0-47.0) % MCV 86.2 (80.0-100.0) fL MCH 30.1 (25.0-34.0) pg MCHC 34.9 (32.0-36.0) g/dL RDW Std Deviation 41.6 (36.4-46.3) fL RDW Coeff of Silvino 13.3 (11.5-14.5) % Plt Count 280 (130-400) K/uL MPV 11.9 (9.4-12.4) fL Immature Gran % (Auto) 1.3 % Neut % (Auto) 86.2 % Lymph % (Auto) 4.8 % [place] % (Auto) 7.1 % Eos % (Auto) 0.3 % Baso % (Auto) 0.3 % Neut # (Auto) 13.44 H (1.40-6.50) K/uL Lymph # (Auto) 0.75 L (1.2-3.4) K/uL [place] # (Auto) 1.11 H (0.11-0.59) K/uL Eos # (Auto) 0.04 (0-0.50) K/uL Baso # (Auto) 0.04 (0-0.2) K/uL Immature Gran # (Auto) 0.20 (0.01-0.20) K/uL PT 11.4 (9.0-12.0) Seconds INR 1.0 (0.9-1.1) APTT 24.9 (21.0-31.0) Seconds PTT Ratio 0.9 Sodium 127 L (136-145) mmol/L Potassium 3.5 (3.5-5.1) mmol/L Chloride 95 L (98-107) mmol/L Carbon Dioxide 19 L (21-32) mmol/L Anion Gap 13 H (3-11) BUN 72 H (6-23) mg/dl Creatinine 3.51 H (0.6-1.2) mg/dl Est Cr Clr Drug Dosing Not Reportable Est GFR ( Amer) 13.5 ml/min Est GFR (Non-Af Amer) 11.7 ml/min BUN/Creatinine Ratio 20.5 H (10-20) Glucose 130 H (70-99(Fasting)) mg/dl POC Glucose (70-99) mg/dl Calcium 9.3 (8.6-10.3) mg/dl Total Bilirubin 0.7 (0.2-1.0) mg/dl AST 43 H (13-39) U/L ALT 68 H (7-52) U/L Alkaline Phosphatase 119 H (34-104) U/L Troponin I High Sens 38.1 H (0-14) pg/ml Total Protein 8.4 H (6.0-8.3) gm/dl Albumin 3.8 (3.4-5.0) gm/dl Globulin 4.6 H (2.5-4.0) gm/dl Albumin/Globulin Ratio 0.8 L (0.9-2) Adenovirus (PCR) (NotDetected) B. pertussis DNA (PCR) (NotDetected) B.parapertussis DNA PCR (NotDetected) C. pneumoniae DNA (PCR) (NotDetected) Coronavirus OC43 (PCR) (NotDetected) Coronavirus HKU1 (PCR) (NotDetected) Coronavirus 229E (PCR) (NotDetected) SARS-CoV-2 (PCR) (NotDetected) Coronavirus NL63 (PCR) (NotDetected) Human Metapneumovir PCR (NotDetected) Influenza Type A (PCR) (NotDetected) Influenza Type B (PCR) (NotDetected) M. pneumoniae (PCR) (NotDetected) Parainfluenza 1 (PCR) (NotDetected) Parainfluenza 2 (PCR) (NotDetected) Parainfluenza 3 (PCR) (NotDetected) Parainfluenza 4 (PCR) (NotDetected) RSV (PCR) (NotDetected) Entero/Rhino (PCR) (NotDetected) 04/01/23 04/01/23 Range/Units 14:33 17:20 WBC (4.8-10.8) K/ul RBC (4.20-5.40) M/uL Hgb (12.0-16.0) g/dl Hct (37.0-47.0) % MCV (80.0-100.0) fL MCH (25.0-34.0) pg MCHC (32.0-36.0) g/dL RDW Std Deviation (36.4-46.3) fL RDW Coeff of Silvino (11.5-14.5) % Plt Count (130-400) K/uL MPV (9.4-12.4) fL Immature Gran % (Auto) % Neut % (Auto) % Lymph % (Auto) % [place] % (Auto) % Eos % (Auto) % Baso % (Auto) % Neut # (Auto) (1.40-6.50) K/uL Lymph # (Auto) (1.2-3.4) K/uL [place] # (Auto) (0.11-0.59) K/uL Eos # (Auto) (0-0.50) K/uL Baso # (Auto) (0-0.2) K/uL Immature Gran # (Auto) (0.01-0.20) K/uL PT (9.0-12.0) Seconds INR (0.9-1.1) APTT (21.0-31.0) Seconds PTT Ratio Sodium (136-145) mmol/L Potassium (3.5-5.1) mmol/L Chloride (98-107) mmol/L Carbon Dioxide (21-32) mmol/L Anion Gap (3-11) BUN (6-23) mg/dl Creatinine (0.6-1.2) mg/dl Est Cr Clr Drug Dosing Est GFR ( Amer) ml/min Est GFR (Non-Af Amer) ml/min BUN/Creatinine Ratio (10-20) Glucose (70-99(Fasting)) mg/dl POC Glucose 112 H (70-99) mg/dl Calcium (8.6-10.3) mg/dl Total Bilirubin (0.2-1.0) mg/dl AST (13-39) U/L ALT (7-52) U/L Alkaline Phosphatase (34-104) U/L Troponin I High Sens (0-14) pg/ml Total Protein (6.0-8.3) gm/dl Albumin (3.4-5.0) gm/dl Globulin (2.5-4.0) gm/dl Albumin/Globulin Ratio (0.9-2) Adenovirus (PCR) Not Detected (NotDetected) B. pertussis DNA (PCR) Not Detected (NotDetected) B.parapertussis DNA PCR Not Detected (NotDetected) C. pneumoniae DNA (PCR) Not Detected (NotDetected) Coronavirus OC43 (PCR) Not Detected (NotDetected) Coronavirus HKU1 (PCR) Not Detected (NotDetected) Coronavirus 229E (PCR) Not Detected (NotDetected) SARS-CoV-2 (PCR) Not Detected (NotDetected) Coronavirus NL63 (PCR) Not Detected (NotDetected) Human Metapneumovir PCR Not Detected (NotDetected) Influenza Type A (PCR) Not Detected (NotDetected) Influenza Type B (PCR) Not Detected (NotDetected) M. pneumoniae (PCR) Not Detected (NotDetected) Parainfluenza 1 (PCR) Not Detected (NotDetected) Parainfluenza 2 (PCR) Not Detected (NotDetected) Parainfluenza 3 (PCR) Not Detected (NotDetected) Parainfluenza 4 (PCR) Not Detected (NotDetected) RSV (PCR) Not Detected (NotDetected) Entero/Rhino (PCR) Not Detected (NotDetected) Imaging Data Radiologist's Impression: Chest X-Ray 04/01/23 13:55 SINGLE VIEW CHEST CLINICAL HISTORY: Atypical chest pain. FINDINGS: An AP, portable, upright chest radiograph is compared to study dated 03/22/2023 and correlated with chest CT dated 04/21/2015. The heart is mildly enlarged noting atherosclerotic calcification of the thoracic aorta. The pulmon jossue vasculature is nondistended congested. Findings of chronic interstitial lung disease are similar to previous. Scarring/atelectasis is noted at the lung bases. No superimposed airspace consolidation or large pleural effusion is identified. No pneumothorax is seen. The skeletal structures are osteopenic. The bony thorax is grossly intact. IMPRESSION: Chronic parenchymal changes as above with no acute cardiopulmonary abnormality identified. ACT 112: Negative or not required by law. Electronically signed by: Glen Ortiz M.D. 04/01/2023 3:[address] 04/01/23 15:19 CT SCAN OF THE CHEST WITHOUT IV CONTRAST CLINICAL HISTORY: Dyspnea COMPARISON STUDY: Chest x-ray dated 04/01/2023. Chest CT dated 04/21/2015. TECHNIQUE: CT scan of the thorax was performed from the thoracic inlet to the upper abdomen. Images are reviewed in the axial, sagittal, and coronal planes. IV contrast was not administered for this examination as per the referring clinician. A dose lowering technique was utilized adhering to the principles of ALARA. CT DOSE: 627.96 mGy.cm FINDINGS: Thyroid: Atrophic. Thoracic aorta: There is moderate atherosclerotic calcification of the thoracic aorta, which is normal in caliber and demonstrates standard 3-vessel arch anatomy. Heart: The heart is mildly enlarged and without pericardial effusion. The coronary arteries are densely calcified. The main pulmonary arteries are dilated suggesting pulmonary artery hypertension. Lungs and pleural spaces: Findings of chronic interstitial lung disease are again seen throughout both lungs. This has progressed as compared to 04/21/2015 examination, with diffuse subpleural reticulation and subpleural ground glass opacities. There are numerous foci of parenchymal scarring and architectural distortion. Traction bronchiectasis is seen bilaterally. No honeycombing is identified. There is no superimposed airspace consolidation or pleural effusion. There are scattered calcified granulomas. The trachea and central airways are patent. Mediastinum: There is no mediastinal lymphadenopathy. Dayna: Not well assessed without IV contrast. Axillae: There is no axillary lymphadenopathy. Upper abdomen: The gallbladder is distended but otherwise normal as imaged. Calcifications posterior to the right lobe of the liver are similar to the 2015 examination. Diverticula are noted in the partially imaged left colon. Skeletal structures: The skeletal structures are osteopenic. Degenerative change in hyperkyphosis is noted in the thoracic spine. There is a mild chronic superior endplate compression deformity of T4. Arthritic change is noted in the shoulders. No lytic or blastic bony lesions are seen. IMPRESSION: 1. Findings of chronic interstitial/fibrotic lung disease as above. This has progressed from the 2015 examination. Nonemergent follow-up with pulmonology is recommended. 2. No superimposed airspace consolidation or pleural effusion is identified. 3. Mild cardiomegaly. 4. Additional findings as above. ACT 112: Negative or not required by law. Electronically signed by: Glen Ortiz M.D. 04/01/2023 4:04 PM Discharge Plan Visit Data Chief Complaint: Shortness of Breath/Dyspnea Stated Complaint: SOB, WEAKNESS ED Provider: Nery Orta Discharge Problem: SOB (shortness of breath), Hypoxia, DRAKE (acute kidney injury), CKD (chronic kidney disease), Elevated troponin, Abnormal ECG Patient Disposition: Admitted As Inpatient Discharge Instructions Interventions: ED Discharge Assessment Last Done: 04/01/23 20:19
[2023-04-01 14:58] LABS: Basophils # (auto) 0.04 K/uL (0-0.2); Basophils % (auto) 0.3 %; Eosinophils # (auto) 0.04 K/uL (0-0.50); Eosinophils % (auto) 0.3 %; Hematocrit (blood only) 40.7 % (37.0-47.0); Hemoglobin 14.2 g/dl (12.0-16.0); Immature Granulocytes % (auto) 1.3 %; Lymphocytes # (auto) 0.75 K/uL (1.2-3.4); Lymphocytes % (auto) 4.8 %; Mean Corpuscular Hemoglobin 30.1 pg (25.0-34.0); Mean Corpuscular Hgb Conc 34.9 g/dL (32.0-36.0); Mean Corpuscular Volume 86.2 fL (80.0-100.0); Mean Platelet Volume 11.9 fL (9.4-12.4); Monocytes # (auto) 1.11 K/uL (0.11-0.59); Monocytes % (auto) 7.1 %; Neutrophils # (auto) 13.44 K/uL (1.40-6.50); Neutrophils % (auto) 86.2 %; Platelet Count 280 K/uL (130-400); RDW Coefficient of Variation 13.3 % (11.5-14.5); RDW Standard Deviation 41.6 fL (36.4-46.3); Red Blood Count 4.72 M/uL (4.20-5.40); White Blood Count 15.58 K/ul (4.8-10.8)
--- NOTE | 2023-04-01 15:06 | XRay Report ---
SINGLE VIEW CHEST CLINICAL HISTORY: Atypical chest pain. FINDINGS: An AP, portable, upright chest radiograph is compared to study dated 03/22/2023 and correlat ed with chest CT dated 04/21/2015. The heart is mildly enlarged noting atherosclerotic calcification o f the thoracic aorta. The pulmonary vasculature is nondistended congested. Findings of chronic inters titial lung disease are similar to previous. Scarring/atelectasis is noted at the lung bases. No supe rimposed airspace consolidation or large pleural effusion is identified. No pneumothorax is seen. The skeletal structures are osteopenic. The bony thorax is grossly intact. IMPRESSION: Chronic parenchymal changes as above with no acute cardiopulmonary abnormality identified . ACT 112: Negative or not required by law. Electronically signed by: Glen Ortiz M.D. 04/01/2023 3:04 PM
[2023-04-01 15:12] LABS: Alanine Aminotransferase 68 U/L (7-52); Albumin Globulin Ratio 0.8 (0.9-2); Albumin Level 3.8 gm/dl (3.4-5.0); Alkaline Phosphatase 119 U/L (34-104); Anion Gap 13 (3-11); Aspartate Aminotransferase 43 U/L (13-39); BUN Creatinine Ratio 20.5 (10-20); Bilirubin,Total 0.7 mg/dl (0.2-1.0); Blood Urea Nitrogen 72 mg/dl (6-23); Calcium 9.3 mg/dl (8.6-10.3); Carbon Dioxide 19 mmol/L (21-32); Chloride 95 mmol/L (98-107); Est GFR (African American) 13.5 ml/min; Est GFR (Non-African American) 11.7 ml/min; Globulin 4.6 gm/dl (2.5-4.0); Glucose 130 mg/dl (70-99(Fasting)); Potassium 3.5 mmol/L (3.5-5.1); Sodium 127 mmol/L (136-145); Total Protein 8.4 gm/dl (6.0-8.3)
[2023-04-01 15:17] LABS: Troponin I High Sensitivity 38.1 pg/ml (0-14)
[2023-04-01 15:25] LABS: Partial Thromboplastin Ratio 0.9; Partial Thromboplastin Time 24.9 Seconds (21.0-31.0); Prothrombin Time 11.4 Seconds (9.0-12.0)
[2023-04-01 15:40] LABS: Adenovirus PCR Not Detected (NotDetected); Bordetella parapertussis PCR Not Detected (NotDetected); Bordetella pertussis PCR Not Detected (NotDetected); Chlamydia pneumoniae PCR Not Detected (NotDetected); Coronavirus 229E PCR Not Detected (NotDetected); Coronavirus CoV-2 (COVID19)PCR Not Detected (NotDetected); Coronavirus HKU1 PCR Not Detected (NotDetected); Coronavirus NL63 PCR Not Detected (NotDetected); Coronavirus OC43PCR Not Detected (NotDetected); Human Metapneumovirus PCR Not Detected (NotDetected); Influenza A PCR Not Detected (NotDetected); Influenza B PCR Not Detected (NotDetected); Mycoplasma pneumoniae PCR Not Detected (NotDetected); Parainfluenza Virus 1 PCR Not Detected (NotDetected); Parainfluenza Virus 2 PCR Not Detected (NotDetected); Parainfluenza Virus 3 PCR Not Detected (NotDetected); Parainfluenza Virus 4 PCR Not Detected (NotDetected); Respiratory Syncytial VirusPCR Not Detected (NotDetected); Rhinovirus/Enterovirus PCR Not Detected (NotDetected)
--- NOTE | 2023-04-01 16:06 | CT Scan Report ---
CT SCAN OF THE CHEST WITHOUT IV CONTRAST CLINICAL HISTORY: Dyspnea COMPARISON STUDY: Chest x-ray dated 04/01/2023. Chest CT dated 04/21/2015. TECHNIQUE: CT scan of the thorax was performed from the thoracic inlet to the upper abdomen. Images are reviewed in the axial, sagittal, and coronal planes. IV contrast was not administered for this ex amination as per the referring clinician. A dose lowering technique was utilized adhering to the [facility]. CT DOSE: 627.96 mGy.cm FINDINGS: Thyroid: Atrophic. Thoracic aorta: There is moderate atherosclerotic calcification of the thoracic aorta, which is lisbeth l in caliber and demonstrates standard 3-vessel arch anatomy. Heart: The heart is mildly enlarged and without pericardial effusion. The coronary arteries are dense ly calcified. The main pulmonary arteries are dilated suggesting pulmonary artery hypertension. Lungs and pleural spaces: Findings of chronic interstitial lung disease are again seen throughout bot h lungs. This has progressed as compared to 04/21/2015 examination, with diffuse subpleural reticulati on and subpleural ground glass opacities. There are numerous foci of parenchymal scarring and archite ctural distortion. Traction bronchiectasis is seen bilaterally. No honeycombing is identified. There is no superimposed airspace consolidation or pleural effusion. There are scattered calcified granulom as. The trachea and central airways are patent. Mediastinum: There is no mediastinal lymphadenopathy. Dayna: Not well assessed without IV contrast. Axillae: There is no axillary lymphadenopathy. Upper abdomen: The gallbladder is distended but otherwise normal as imaged. Calcifications posterior to the right lobe of the liver are similar to the 2015 examination. Diverticula are noted in the part ially imaged left colon. Skeletal structures: The skeletal structures are osteopenic. Degenerative change in hyperkyphosis is noted in the thoracic spine. There is a mild chronic superior endplate compression deformity of T4. A rthritic change is noted in the shoulders. No lytic or blastic bony lesions are seen. IMPRESSION: 1. Findings of chronic interstitial/fibrotic lung disease as above. This has progressed from the 2014 examination. Nonemergent follow-up with pulmonology is recommended. 2. No superimposed airspace consolidation or pleural effusion is identified. 3. Mild cardiomegaly. 4. Additional findings as above. ACT 112: Negative or not required by law. Electronically signed by: Glen Ortiz M.D. 04/01/2023 4:04 PM
--- NOTE | 2023-04-01 18:42 | History & Physical Report ---
Date of Service April 01, 2023 History of Present Illness Chief Complaint: acute respiratory failure with hypoxia/ worsening Chronic interstitial lung disease- patient has not needed to use inhalers or nebulizers in the past viral PCR negative CT scan of chest shows worsening interstitial lung disease Suspect her symptoms have been brought on by irritation from [place] wildfires and respiratory alerts associated Methylprednisolone 20 mg IV every 8 hours Duonebs every 4 hours while awake and every 2 hours when necessary. Guaifenesin extended release 1200 mg p.o. twice daily Patient Likely will need some form of inhaler/nebulizer to go home with acute kidney injury on CKD/Hyponatremia- Creatinine 3.51 on admission, with base 2.35 sodium 127 Likely secondary to recent addition of Lasix, which will be held now gentle rehydration with normal saline at 80 mils per hour x1 L recheck laboratories in a.m. to determine any possible need for additional rehydration elevated troponin- Troponin 38.1 on admission Likely associated with acute kidney injury and supply/demand mismatch Follow serially dementia/mild cognitive impairment/depression/cerebrovascular disease/anxiety- Family has been concerned regarding number of medications that she is on that affect her mental state, and mirtazapine was recently discontinued in the outpatient setting. Continue donepezil, memantine, and buspirone Decrease fluoxetine from 60 to 40 mg daily. Family is aware any change in m entation may take several weeks to months to have effect macular degeneration/recent left eye surgery with bubble placement- Patient has had decreased ability to travel and engage in activities due to concerns regarding bubble malplacement She has a follow-up with retina specialist next week to determine if she is able to go back to more regular physical activities CODE STATUS: Discussed with family, patient is continue to be full resuscitation Primary Care Provider: Ray Wilson MD Allergies Allergy/AdvReac Type Severity Reaction Status Date / Time diphenhydramine AdvReac Intermediate SHAKEY, Verified 04/01/23 17:43 HYPER morphine AdvReac Mild vomiting Verified 04/01/23 17:43 lactose AdvReac Unknown DIAHREA Verified 04/01/23 17:43 doxycycline AdvReac Nausea Verified 04/01/23 17:43 nirous oxide AdvReac will make Uncoded 04/01/23 17:44 blind Home Medications Medication Instructions Recorded Confirmed Type buspirone 7.5 mg tablet 7.5 mg PO BID #180 tabs 04/17/19 04/01/23 Rx mirtazapine 15 mg tablet 15 mg PO DAILY #90 tabs 04/17/19 04/01/23 Rx fluoxetine 20 mg tablet 20 mg PO DAILY 04/18/19 04/01/23 History cholecalciferol (vitamin D3) 25 25 mcg PO .COMPLEX #30 caps 09/23/21 04/01/23 Rx mcg (1,000 unit) capsule calcitriol 0.5 mcg capsule 0.5 mcg PO .COMPLEX #36 caps 04/10/22 04/01/23 Rx levothyroxine 50 mcg capsule 50 mcg PO DAILY #90 caps 04/14/22 04/01/23 Rx vitamins A,C,Q-szjj-jgawim 4,296 1 cap PO BID 06/08/22 04/01/23 History mcg-226 mg-90 mg capsule (ICaps AREDS) donepezil 10 mg tablet 10 mg PO DAILY #90 tabs 10/19/22 04/01/23 Rx fluoxetine 40 mg capsule 40 mg PO DAILY 10/23/22 04/01/23 History memantine 28 mg capsule 28 mg PO DAILY #90 ea 12/07/22 04/01/23 Rx sprinkle,extended release 24hr Past Med/Surg History Medical History (Updated 04/01/23 @ 22:11 by Nery Orta DO) Abdominal adhesions Anemia Chronic kidney disease, stage IV (severe) Endometrial cancer Ileostomy present Influenza A Radiation gastroenteritis (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/12) Small bowel obstruction Surgical History H/O ileostomy History of appendectomy (10/20/12) Family History Father Pancreatic cancer Mother Pancreatic cancer Other Cancer Social History Smoking Status: Unknown if ever smoked Second Hand Exposure: No; Do You Dip or Chew Tobacco: No; Hx Alcohol Use: No Hx Substance Use: No Preferred Language: Slovenian Communication Ability: Effective Social Science Instructor Required: No Beliefs That Will Affect Care: None marital status: Current Living Situation: Spouse current occupational status: retired Other Information That Helps Us Care for You: No Feels Safe at Home: Yes Safety Concerns: Feels Safe At This Time Assistive Devices: Glasses Results & Data Results & Data Vital Signs (Past 12 Hours) Vital Signs Temp Pulse Pulse Pulse Pulse Resp Resp 04/01/23 18:30 04/01/23 18:00 04/01/23 17:50 04/01/23 17:40 04/01/23 17:30 04/01/23 17:30 04/01/23 17:20 04/01/23 17:11 04/01/23 17:11 04/01/23 17:10 04/01/23 17:00 04/01/23 16:50 75 24 04/01/23 16:40 75 21 04/01/23 16:30 77 23 04/01/23 16:20 75 23 04/01/23 16:10 81 22 04/01/23 16:00 73 25 H 04/01/23 15:51 82 28 H 04/01/23 15:40 79 17 04/01/23 15:30 79 22 04/01/23 15:30 04/01/23 15:25 75 24 04/01/23 15:25 04/01/23 17:13 04/01/23 17:08 85 22 04/01/23 17:03 117 H 76 28 H 04/01/23 15:20 86 20 04/01/23 15:10 78 24 04/01/23 15:00 79 26 H 04/01/23 14:50 87 27 H 04/01/23 14:40 80 23 04/01/23 14:30 83 29 H 04/01/23 14:20 89 27 H 04/01/23 14:11 86 26 H 04/01/23 15:25 04/01/23 14:15 91 H 04/01/23 14:30 82 26 H 04/01/23 14:30 04/01/23 14:11 85 24 04/01/23 14:07 04/01/23 13:50 36.6 C 87 14 Resp BP BP Pulse Ox Pulse Ox Pulse Ox O2 Del Method 04/01/23 18:30 133/83 100 Nasal Cannula 04/01/23 18:00 109/79 04/01/23 17:50 99 04/01/23 17:40 100 04/01/23 17:30 100 07/06/23 17:30 142/89 H 04/01/23 17:20 99 04/01/23 17:11 124/77 04/01/23 17:11 100 04/01/23 17:10 99 04/01/23 17:00 91 04/01/23 16:50 97 04/01/23 16:40 98 04/01/23 16:30 96 04/01/23 16:20 97 04/01/23 16:10 97 04/01/23 16:00 96 04/01/23 15:51 94 04/01/23 15:40 95 04/01/23 15:30 96 04/01/23 15:30 121/80 04/01/23 15:25 96 04/01/23 15:25 119/67 04/01/23 17:13 89 L Room Air 04/01/23 17:08 124/77 99 Nasal Cannula 04/01/23 17:03 20 87 L 97 Room Air 04/01/23 15:20 95 Room Air 04/01/23 15:10 96 Room Air 04/01/23 15:00 95 Room Air 04/01/23 14:50 94 Room Air 04/01/23 14:40 95 Room Air 04/01/23 14:30 94 Room Air 04/01/23 14:20 Room Air 04/01/23 14:11 95 Room Air 04/01/23 15:25 119/67 04/01/23 14:15 04/01/23 14:30 95 Room Air 04/01/23 14:30 95 Room Air 04/01/23 14:11 121/72 95 Room Air 04/01/23 14:07 94 Room Air 04/01/23 13:50 131/80 91 Nasal Cannula O2 Flow Rate 04/01/23 18:30 3 04/01/23 18:00 04/01/23 17:50 3 04/01/23 17:40 3 04/01/23 17:30 3 04/01/23 17:30 04/01/23 17:20 3 04/01/23 17:11 04/01/23 17:11 04/01/23 17:10 04/01/23 17:00 04/01/23 16:50 04/01/23 16:40 04/01/23 16:30 04/01/23 16:20 04/01/23 16:10 04/01/23 16:00 04/01/23 15:51 04/01/23 15:40 04/01/23 15:30 04/01/23 15:30 04/01/23 15:25 04/01/23 15:25 04/01/23 17:13 04/01/23 17:08 3 04/01/23 17:03 04/01/23 15:20 04/01/23 15:10 04/01/23 15:00 04/01/23 14:50 04/01/23 14:40 04/01/23 14:30 04/01/23 14:20 04/01/23 14:11 04/01/23 15:25 04/01/23 14:15 04/01/23 14:30 04/01/23 14:30 04/01/23 14:11 04/01/23 14:07 04/01/23 13:50 Code Status & VTE Plan VTE Prophylaxis Plan VTE Prophylaxis will be ordered: Yes PG Care Time/CCT Total # of Minutes Spent Total Time Spent with Patient: Total time spent is greater than 50% in coordination of care (as documented) at patient's floor/unit and/or counseling patient: Coding Level of Care Code 88919 INT INP/OBS CARE 3/75MIN Diagnoses
[2023-04-01] MEDS ORDERED: SODIUM CHLORIDE 0.9% 1000ML 1,000 ML IV SCH (21:28)
[2023-04-01] MEDS ORDERED: ONDANSETRON INJ 2 MG/ML 2 ML VIAL IV PRN (21:28)
[2023-04-01] MEDS: ALBUT/IPRATROP 3MG/0.5MG NEB 3 ML VIAL NEB SCH (22:22)
[2023-04-01] MEDS: busPIRone 7.5 MG TAB PO SCH (22:26)
[2023-04-01] MEDS: methylPREDNISolone 20 MG in SYRINGE 0 ML IV SCH (22:27)
[2023-04-02] MEDS: methylPREDNISolone 20 MG in SYRINGE 0 ML IV SCH ×3 (05:23→21:06)
[2023-04-02] MEDS: LEVOTHYROXINE SODIUM 50 MCG TABLET PO SCH (05:23)
[2023-04-02 06:37] LABS: Hematocrit (blood only) 40.2 % (37.0-47.0); Hemoglobin 13.6 g/dl (12.0-16.0); Mean Corpuscular Hemoglobin 29.8 pg (25.0-34.0); Mean Corpuscular Hgb Conc 33.8 g/dL (32.0-36.0); Mean Platelet Volume 11.6 fL (9.4-12.4); Platelet Count 220 K/uL (130-400); RDW Coefficient of Variation 13.2 % (11.5-14.5); RDW Standard Deviation 42.7 fL (36.4-46.3); Red Blood Count 4.57 M/uL (4.20-5.40); White Blood Count 10.62 K/ul (4.8-10.8)
[2023-04-02 06:47] LABS: Albumin Globulin Ratio 0.8 (0.9-2); Albumin Level 3.6 gm/dl (3.4-5.0); BUN Creatinine Ratio 22.8 (10-20); Bilirubin,Total 0.9 mg/dl (0.2-1.0); Calcium 9.1 mg/dl (8.6-10.3); Creatinine Clr Calc Pharmacy 13.5 ml/min; Est GFR (African American) 15.3 ml/min; Est GFR (Non-African American) 13.2 ml/min; Globulin 4.3 gm/dl (2.5-4.0); Magnesium 2.3 mg/dl (1.7-2.4); Potassium 4.1 mmol/L (3.5-5.1); Total Protein 7.9 gm/dl (6.0-8.3)
[2023-04-02 06:53] LABS: Troponin I High Sensitivity 41.8 pg/ml (0-14)
[2023-04-02 06:58] LABS: Basophils # (auto) 0.01 K/uL (0-0.2); Basophils % (auto) 0.1 %; Immature Granulocytes # (auto) 0.13 K/uL (0.01-0.20); Immature Granulocytes % (auto) 1.2 %; Lymphocytes # (auto) 0.55 K/uL (1.2-3.4); Lymphocytes % (auto) 5.2 %; Monocytes # (auto) 0.23 K/uL (0.11-0.59); Monocytes % (auto) 2.2 %; Neutrophils % (auto) 91.3 %
[2023-04-02] MEDS: ALBUT/IPRATROP 3MG/0.5MG NEB 3 ML VIAL NEB SCH ×4 (07:11→19:12)
[2023-04-02] MEDS ORDERED: CALCITRIOL 0.25 MCG CAPSULE PO SCH (09:00)
[2023-04-02] MEDS ORDERED: CHOLECALCIFEROL 1,000 UNITS 25 MCG TAB PO SCH (09:00)
[2023-04-02] MEDS: DONEPEZIL HCL 10 MG TAB PO SCH (09:01)
[2023-04-02] MEDS: MEMANTINE HCL 10 MG TAB PO SCH ×2 (09:01→21:06)
[2023-04-02] MEDS: FLUoxetine HCL 20 MG CAP PO SCH (09:01)
[2023-04-02] MEDS: CEROVITE ADV FORMULA TAB PO SCH (09:01)
[2023-04-02] MEDS: busPIRone 7.5 MG TAB PO SCH ×2 (09:01→21:06)
[2023-04-02] MEDS ORDERED: LACTATED RINGER'S 1,000 ML IV SCH (11:30)
[2023-04-02] MEDS: HEPARIN SOD 5,000 UNIT/0.5 ML VIAL SQ SCH (21:05)
--- NOTE | 2023-04-02 21:05 | Hospitalist Progress Note ---
Date of Service April 02, 2023 Assessment & Plan (1) ILD (interstitial lung disease): Plan: CT chest c/w progressive ILD. 2014 CT chest showed early ILD. Likely idiopathic given the chronic, progressive nature. No prior tobacco use or secondary exposure. No obvious environmental exposures. Recent worsening dyspnea either 2nd to worsening ILD with "Exacerbation" vs acute diastolic CHF vs both. If she did have volume overload it is now resolved as she presented volume contracted. Recent outpatient echo - 03/26/23 - normal EF 60-65%, normal RV size/function, normal valve function. She follows with Dr aRy Wilson who can follow this condition. Will need outpatient PFTs, etc. Consider additional w/u (RA, ANCAs, sed rate, etc). Cont solumedrol 20mg IV TID; can decrease to BID dosing tomorrow. (2) Hyponatremia: Plan: Presented volume contracted in the setting of recent diuretic usage. 127 yesterday; now 129 today. Provide 1 additional liter of fluid today and repeat BMP am. Hold diuretics. (3) SOB (shortness of breath): Plan: 2nd to #1 (4) Hypoxia: Plan: 2nd to #1 (5) DRAKE (acute kidney injury): Plan: 2nd to volume contraction from recent diuretics improving give 1 additional liter of fluid repeat BMP am (6) Chronic kidney disease, stage IV (severe): Plan: GFR baseline 15-30 baseline creatinine 2.4 [address] Eric Zamorano, [facility] [place] (7) Elevated troponin: Plan: likely myocardial demand ischemia in setting of #1 OR due to DRAKE/CKD no evidence of ACS (8) Hypothyroidism: Plan: TSH wnl 09/2022 cont synthroid (9) Dementia: Plan: follows with neuro for such cont namenda cont remeron cont aricept no superimposed delirium at this time (10) Esophageal reflux: Plan: not on meds for such (11) Ileostomy status: Plan: Created at [facility] by Dr. Rubio with lysis of adhesions, ileostomy creation, and mucous fistula with revision surgery of her stoma. Ileostomy is working well. Empties bag 3-4 times a day; this has not changed recently; thus, no dumping or high output. (12) History of endometrial cancer: Plan: dx s/p radiation, surgery, etc ultimately had multiple SBOs due to adhesions then had ileostomy created as noted above (13) DVT prophylaxis: Plan: add heparin 5000 BID Plan updated at bedside PT eval while here Admission and Anticipated Discharge Date Admission Date: April 01, 2023 Subjective tele overnight wnl patient resting comfortably in bed (flat, no orthopnea) at bedside pt with robust appetite no dyspnea at rest scant cough if any only issue of late was dyspnea and dyspnea on exertion at home she was never a smoker no occupational / environmental exposures or hazards sees Dr Wilson for primary care Review of Systems Review of Systems: gen - no fevers cv - no chest pain pulm - no cough or sputum GI - no abd pain, nausea, emesis Physical Exam Physical Exam: gen - pleasant, NAD neck - no JVD heart - RRR, s1 s2, 1/6 JOSIE LSB lungs - diffuse, dry, velco-like rales b/l extending from bases and 1/[address] up back; no wheeze; no increased work of breathing abd - soft, NT, ND, BS+; no HSM; ileostomy right side of abdomen; stoma healthy appearing; stool in bag ext - no edema, pulses 2+ b/l Results & Data Results & Data Vital Signs (Past 12 Hours) Vital Signs Temp Pulse Pulse Resp BP Pulse Ox O2 Del Method 04/02/23 19:00 36.7 C 85 18 116/69 97 Room Air 04/02/23 19:14 85 16 95 Room Air 04/02/23 17:55 90 04/02/23 16:10 81 15 96 Room Air 04/02/23 16:01 36.7 C 79 17 112/70 97 Room Air 04/02/23 12:01 36.8 C 85 19 107/67 97 Room Air 04/02/23 11:17 89 16 96 Room Air Laboratory Results Laboratory Results - last 24 hr 04/01/23 04/02/23 04/02/23 22:31 05:46 05:46 WBC 10.62 RBC 4.57 Hgb 13.6 Hct 40.2 MCV 88.0 MCH 29.8 MCHC 33.8 RDW Std Deviation 42.7 RDW Coeff of Silvino 13.2 Plt Count 220 MPV 11.6 Immature Gran % (Auto) 1.2 Neut % (Auto) 91.3 Lymph % (Auto) 5.2 [place] % (Auto) 2.2 Eos % (Auto) 0.0 Baso % (Auto) 0.1 Neut # (Auto) 9.70 H Lymph # (Auto) 0.55 L [place] # (Auto) 0.23 Eos # (Auto) 0.00 Baso # (Auto) 0.01 Immature Gran # (Auto) 0.13 Sodium 129 L Potassium 4.1 Chloride 99 Carbon Dioxide 18 L Anion Gap 12 H BUN 72 H Creatinine 3.16 H D Est Cr Clr Drug Dosing 13.5 Est GFR ( Amer) 15.3 Est GFR (Non-Af Amer) 13.2 BUN/Creatinine Ratio 22.8 H Glucose 144 H Calcium 9.1 Magnesium 2.3 Total Bilirubin 0.9 AST 35 ALT 61 H Alkaline Phosphatase 111 H Troponin I High Sens 49.1 H D 41.8 H Total Protein 7.9 Albumin 3.6 Globulin 4.3 H Albumin/Globulin Ratio 0.8 L PG Care Time/CCT Total # of Minutes Spent Total Time Spent with Patient: Total time spent is greater than 50% in coordination of care (as documented) at patient's floor/unit and/or counseling patient: Coding Level of Care Code 69010 SUB INP/OBS CARE 3/50MIN Diagnoses ILD (interstitial lung disease) J84.9 Hyponatremia E87.1 SOB (shortness of breath) R06.02 Hypoxia R09.02 DRAKE (acute kidney injury) N17.9 Chronic kidney disease, stage IV (severe) N18.4 Elevated troponin R77.8 Hypothyroidism E03.9 Dementia F03.90 Esophageal reflux K21.9 Ileostomy status Z93.2 History of endometrial cancer Z85.42 DVT prophylaxis Z29.9
[2023-04-03] MEDS: LEVOTHYROXINE SODIUM 50 MCG TABLET PO SCH (05:31)
[2023-04-03] MEDS: methylPREDNISolone 20 MG in SYRINGE 0 ML IV SCH (05:31)
--- NOTE | 2023-04-03 06:19 | Electrocardiogram Report ---
Test Reason : Blood Pressure : / mmHG Vent. Rate : 086 BPM Atrial Rate : 086 BPM P-R Int : 174 ms QRS Dur : 100 ms QT Int : 402 ms P-R-T Axes : 021 -61 102 degrees QTc Int : 481 ms Normal sinus rhythm Left anterior fascicular block Left ventricular hypertrophy with repolarization abnormality Poor R wave progression, consider anterior NE vs. lead placement vs. LVH Abnormal ECG When compared with ECG of 21-APR-2015 22:09, QRS duration has increased ST now depressed in Lateral leads T wave inversion now evident in Lateral leads Confirmed by Sergio Talamantes ([id number]) on 04/03/2023 6:19:37 AM Referred By: Confirmed By:Sergio Talamantes
[2023-04-03 06:33] LABS: Albumin Globulin Ratio 0.9 (0.9-2); Albumin Level 3.4 gm/dl (3.4-5.0); BUN Creatinine Ratio 24.9 (10-20); Bilirubin,Total 0.6 mg/dl (0.2-1.0); Calcium 9.1 mg/dl (8.6-10.3); Creatinine Clr Calc Pharmacy 14.9 ml/min; Est GFR (African American) 17.4 ml/min; Globulin 3.6 gm/dl (2.5-4.0); Potassium 4.1 mmol/L (3.5-5.1)
[2023-04-03] MEDS: ALBUT/IPRATROP 3MG/0.5MG NEB 3 ML VIAL NEB SCH (07:28)
[2023-04-03] MEDS ORDERED: ALBUT/IPRATROP 3MG/0.5MG NEB 3 ML VIAL NEB PRN (07:48)
[2023-04-03] MEDS: FLUoxetine HCL 20 MG CAP PO SCH (08:28)
[2023-04-03] MEDS: DONEPEZIL HCL 10 MG TAB PO SCH (08:28)
[2023-04-03] MEDS: busPIRone 7.5 MG TAB PO SCH (08:28)
[2023-04-03] MEDS: CEROVITE ADV FORMULA TAB PO SCH (08:28)
[2023-04-03] MEDS: MEMANTINE HCL 10 MG TAB PO SCH (08:28)
[2023-04-03] MEDS: HEPARIN SOD 5,000 UNIT/0.5 ML VIAL SQ SCH (08:28)
--- NOTE | 2023-04-03 14:08 | Discharge Summary ---
Date of Service April 03, 2023 Principal Diagnosis problem 1 Discharge Exam gen - pleasant, NAD neck - no JVD heart - RRR, s1 s2, 1/6 JOSIE LSB lungs - no wheeze; no increased work of breathing abd - soft, NT, ND, BS+; no HSM; ileostomy right side of abdomen; stoma healthy appearing; stool in bag ext - no edema, pulses 2+ b/l Discharge Data Allergies Allergy/AdvReac Type Severity Reaction Status Date / Time diphenhydramine AdvReac Intermediate SHAKEY, Verified 04/01/23 17:43 HYPER morphine AdvReac Mild vomiting Verified 04/01/23 17:43 lactose AdvReac Unknown DIAHREA Verified 04/01/23 17:43 doxycycline AdvReac Nausea Verified 04/01/23 17:43 nirous oxide AdvReac will make Uncoded 04/01/23 17:44 blind Consultations 04/01/23 17:11 ED Decision to Admit Stat Ordered Studies 04/01/23 15:19 CT chest diagnostic wo con Stat Hospital Course (1) ILD (interstitial lung disease): CT chest c/w progressive ILD. 2014 CT chest showed early ILD. Likely idiopathic given the chronic, progressive nature. No prior tobacco use or secondary exposure. No obvious environmental exposures. Recent worsening dyspnea either 2nd to worsening ILD with "Exacerbation" vs acute diastolic CHF vs both. If she did have volume overload it is now resolved as she presented volume contracted. Recent outpatient echo - 03/26/23 - normal EF 60-65%, normal RV size/function, normal valve function. She follows with Dr Ray Wilson who can follow this condition. Will need outpatient PFTs, etc. will defer additional w/u to PCP (RA, ANCAs, sed rate, etc). Cont solumedrol 20mg IV TID; can decrease to BID dosing tomorrow. dejuan discharge on prednisone taper. (2) Hyponatremia: Presented volume contracted in the setting of recent diuretic usage. 127 yesterday; now 129 today. Provide 1 additional liter of fluid. Sodium improved. (3) SOB (shortness of breath): 2nd to #1 (4) Hypoxia: 2nd to #1 (5) DRAKE (acute kidney injury): 2nd to volume contraction from recent diuretics improving give 1 additional liter of fluid (6) Chronic kidney disease, stage IV (severe): GFR baseline 15-30 baseline creatinine 2.[address] Eric Zamorano, [facility] (7) Elevated troponin: likely myocardial demand ischemia in setting of #1 OR due to DRAKE/CKD no evidence of ACS (8) Hypothyroidism: TSH wnl 09/2022 cont synthroid (9) Dementia: follows with neuro for such cont namenda cont remeron cont aricept no superimposed delirium at this time (10) Esophageal reflux: not on meds for such (11) Ileostomy status: Created at [facility] by Dr. Rubio with lysis of adhesions, ileostomy creation, and mucous fistula with revision surgery of her stoma. Ileostomy is working well. Empties bag 3-4 times a day; this has not changed recently; thus, no dumping or high output. (12) History of endometrial cancer: dx 1990s s/p radiation, surgery, etc ultimately had multiple SBOs due to adhesions then had ileostomy created as noted above (13) DVT prophylaxis: Plan updated at bedside PT eval while here Total Time Total Time Spent Total Time Spent (In Minutes): 32 Discharge Plan Discharge Items Patient Disposition: Home - Home Health Services Reason For Visit: DRAKE, HYPONATREMIA, CONFUSION, MANTILLA Discharge Diagnosis: Drake, hyponatremia Activity: Per Instructions section Activity Comment: use wheeled walker Non-emergency contact: Primary Care Provider Call non-emergency contact if: you have any medication questions Follow-up/Referrals: Ray Wilson MD [Primary Care Provider] - Diet: Heart Healthy Addtl Attending Provider Instructions: Will need outpatient PFTs,Recommend close followup with Dr. Wilson. Pending Studies at Discharge: No Stand-Alone Forms: [facility], Smoking Cessation Medications and DC Order Prescriptions: New prednisone 10 mg tablet 10 mg PO DAILY Qty: 20 0RF Rx Instructions: start on Wednesday: Take 4 tablets once daily for 2 days 3 tablets once daily for 2 days 2 tabs for 2 days 1 tab for 2 days Continued buspirone 7.5 mg tablet 7.5 mg PO BID Qty: 180 3RF calcitriol 0.5 mcg capsule 0.5 mcg PO .COMPLEX Qty: 36 3RF Rx Instructions: 0.5 mcg PO Wednesday, Wednesday, and Wednesday; levothyroxine 50 mcg capsule 50 mcg PO DAILY Qty: 90 3RF donepezil 10 mg tablet 10 mg PO DAILY Qty: 90 3RF memantine 28 mg capsule,sprinkle,ER 24hr 28 mg PO DAILY Qty: 90 1RF cholecalciferol (vitamin D3) 25 mcg (1,000 unit) capsule 25 mcg PO .COMPLEX Qty: 30 0RF Rx Instructions: 25 mcg PO every wednesday, wednesday, and wednesday; ICaps AREDS [id number] capsule 1 cap PO BID fluoxetine 40 mg capsule 40 mg PO DAILY Patient Comments: 40 mg PO QOD; Discontinued mirtazapine 15 mg tablet 15 mg PO DAILY Qty: 90 3RF fluoxetine 20 mg tablet 20 mg PO DAILY Discharge Orders: Discharge Order (Routine); Ordered 04/03/23 Ordered By: Taj Knight/Other Patient Handouts: Hyponatremia Dc Admission Data Admit Date/Time: 04/01/23 18:42 Attending Provider: Taj Yusuf Admit Provider: Casey Baez Primary Care Provider: Ray Wilson Other Providers: Casey Baez ; [employer],[facility] Other Interventions: Discharge Summary Assessment (RN) Last Done: 04/03/23 14:10 Coding Level of Care Code 14905 INP/OBS DISCH >30 MIN Diagnoses ILD (interstitial lung disease) J84.9 Hyponatremia E87.1 SOB (shortness of breath) R06.02 Hypoxia R09.02 DRAKE (acute kidney injury) N17.9 Chronic kidney disease, stage IV (severe) N18.4 Elevated troponin R77.8 Hypothyroidism E03.9 Dementia F03.90 Esophageal reflux K21.9 Ileostomy status Z93.2 History of endometrial cancer Z85.42 DVT prophylaxis Z29.9
[2023-04-03] MEDS ORDERED: methylPREDNISolone 20 MG in SYRINGE 0 ML IV SCH (21:00)
== END 2023-04-03 15:41 | disposition home health service (06) ==
LOC: ED 13:46 → INTOOBSV 18:42 → 4W 18:42 → SUATTDRO 18:42 → 4W 20:19